=== PATIENT | male | born 1975 | race Caucasian/White ===

== ENCOUNTER 2020-01-21 08:47 | Emergency (ER) | payer OTHER, MEDICAID, SELFPAY ==
[2020-01-21 08:55] VITALS: BP 144/87; PULSE 79; RESP 16; TEMP 36.6; O2SAT 100; BMI 28.7
--- NOTE | 2020-01-21 09:03 | DI.RAD.S_ITS ---
PROCEDURE: XR WRIST LT MIN 3V INDICATIONS: fall TECHNIQUE: For views of the wrist were acquired. COMPARISON: None. FINDINGS: No fracture. No focal osseous destruction. Normal alignment. Mild spurring at the triscaphe joint. Soft tissues grossly unremarkable. IMPRESSION: No fracture. If the patient's symptoms do not improve recommend followup radiographs in 10 days to assess for healing sclerosis/occult injury. Dictated by: Bogdan Samaniego M.D. on 01/21/2020 at 9:29 Approved by: Bogdan Samaniego M.D. on 01/21/2020 at 9:31
--- NOTE | 2020-01-21 09:33 | ED_ITS ---
HPI - Extremity Injury (Upper) General Chief Complaint: Extremity Injury, Upper Stated Complaint: fall/injury to left wrist Time Seen by Provider: 01/21/20 08:56 Source: patient Mode of arrival: Ambulatory Limitations: no limitations History of Present Illness HPI narrative: Patient presents with left wrist pain after fall this morning. He says he was running through rest very bushes when he tripped on a vine and fell. He has some swelling of the left wrist no numbness or tingling. He denies any other injuries MD complaint: injury to: left and wrist Related Data Home Medications Medication Instructions Recorded Confirmed No Known Home Medications 01/21/20 01/21/20 Allergies Allergy/AdvReac Type Severity Reaction Status Date / Time No Known Drug Allergies Allergy Verified 01/21/20 09:02 Review of Systems Review of Systems Narrative: GENERAL: Denies chills,fever HEENT: Denies throat pain RESPIRATORY: Denies dyspnea, cough, wheezing CARDIOVASCULAR: Denies chest pain, palpitations GASTROINTESTINAL: Denies nausea, vomiting MUSCULOSKELETAL: See HPI SKIN: No rash, no laceration, no pruritus NEUROLOGIC: Denies weakness, dizziness, headache, numbness 8 point review of systems is negative except for those stated above and HPI Patient History Social History Smoking Status: Current every day smoker Smoking Status: Current every day smoker alcohol intake frequency: a few times a month Substance Use Type: marijuana Exam Initial Vital Signs Initial Vital Signs: Vital Signs Temperature 97.9 F 01/21/20 08:55 Pulse Rate 79 01/21/20 08:55 Respiratory Rate 16 01/21/20 08:55 Blood Pressure 144/87 H 01/21/20 08:55 Pulse Oximetry 100 01/21/20 08:55 GENERAL: Well-appearing, well-nourished and in no acute distress. CARDIOVASCULAR: peripheral pulses in tact, cap refill <2 sec RESPIRATORY: No respiratory distress, speaks in full sentences without difficulty EXTREMITIES: Normal range of motion, no clubbing or edema. Neurovascularly intact. Swelling of left wrist around the scaphoid. He is tender around scaphoid with resistance on thumb. Active flexion extension of wrist good distal radial pulse, sensation of ulnar radial and median nerve intact NEUROLOGICAL: Cranial nerves II through XII grossly intact. Normal gait and speech. SKIN: Warm, dry, no petechiae, no rashes or lesions. Procedures Orthopedic Splinting/Casting Injury #1: Side: left Upper Extremity Injury Location: wrist Upper Extremity Immobilizer: thumb spica (velcro) Post splinting neuro exam: intact Post splinting vascular exam: intact Placed by: Nursing Course Orders Ordered: ED Orders 01/21/20 09:03 XR wrist LT min 3V Stat Vital Signs Vital signs: Vital Signs - 8 hr 01/21/20 08:55 Temperature 97.9 F Pulse Rate 79 Respiratory Rate 16 Blood Pressure 144/87 H Pulse Oximetry 100 [facility] - Extremity Injury (Upper) Imaging Data Extremity x-ray #1: Radiologist's Impression: PROCEDURE: XR WRIST LT MIN 3V INDICATIONS: fall TECHNIQUE: For views of the wrist were acquired. COMPARISON: None. FINDINGS: No fracture. No focal osseous destruction. Normal alignment. Mild spurring at the triscaphe joint. Soft tissues grossly unremarkable. IMPRESSION: No fracture. If the patient's symptoms do not improve recommend followup radiographs in 10 days to assess for healing sclerosis/occult injury. Dictated by: Bogdan Samaniego M.D. on 01/21/2020 at 9:29 [facility] Narrative Medical decision making narrative: Patient is placed in a splint questionable scaphoid injury recommend repeat imaging. He is placed in a splint as precaution I discussed all findings with the patient and mother, Education has been performed regarding treatment plan, diagnosis, warning signs and symptoms and all concerns have been addressed. Verbally agree with and understood all of the above. Discharge Plan Departure Patient Disposition: Home Clinical Impression: Left wrist sprain Qualifiers: Encounter type: initial encounter Qualified Code(s): S63.502A - Unspecified sprain of left wrist, initial encounter Discharge Date/Time: 01/21/20 09:53 Instructions: DI for Wrist Sprain Activity Restrictions/Additional Instructions: *You have been diagnosed with left wrist sprain *What to do: Wear splint for about 2 weeks, if continuing to have pain you will need to have another x-ray. Ice 20-30 minutes at a time through the splint *Continue to take medications as directed Ibuprofen 800 mg every 8 hours if needed for pain *Follow up with your primary care provider in 2-3 days *Return to ER if you should have increased pain numbness or tingling or any new, worsening or concerning symptoms Prescriptions: No Action No Known Home Medications RF: 0 Referrals: [facility] [Outside]
== END 2020-01-21 09:53 | disposition home or self-care (01) ==
PROVIDERS: Emergency Provider Emergency Medicine
DX: S63.502A Unspecified sprain of left wrist, initial encounter (principal); W19.XXXA Unspecified fall, initial encounter
CPT/HCPCS: 73110; 99282; 99283

== ENCOUNTER 2022-03-03 15:08 | Emergency (ER) | payer OTHER, MEDICAID, SELFPAY ==
[2022-03-03 15:25] VITALS: BP 139/74; PULSE 75; RESP 18; TEMP 36.8; O2SAT 99; BMI 28.2
[2022-03-03] MEDS: TET,DIPH,PERTUSS(ACELL),VAC/PF 0.5 ML SYRINGE IM (15:30)
--- NOTE | 2022-03-03 16:33 | DI.US.S_ITS ---
PROCEDURE: US PERIPH VENOUS LOW EXTREM LT INDICATIONS: SWELLING/IMMOBILITY TECHNIQUE: Real-time imaging, as well as color and pulse Doppler interrogation, were performed of the lower extremity deep veins from the inguinal ligament to the popliteal fossa. COMPARISON: None. FINDINGS: The common femoral, femoral and popliteal veins are normally compressible, and free of intraluminal thrombus. Color and pulse Doppler demonstrate normal phasic intraluminal flow. There is normal augmentation response to distal compression maneuver. There are multiple enlarged right inguinal lymph node measuring up to 4.4 x 2.3 x 1.4 cm. There is subcutaneous soft tissue edema and increased vascularity. IMPRESSION: 1. No DVT in the right lower extremity. 2. Right inguinal lymphadenopathy. This finding is nonspecific and may be secondary to infectious, inflammatory or neoplastic etiology. Recommend clinical and imaging follow up. 3. Subcutaneous soft tissue edema and increased vascularity, which may be secondary to infection. Recommend clinical correlation. Dictated by: Gabrielle Engel M.D. on 03/03/2022 at 17:41 Approved by: Gabrielle Engel M.D. on 03/03/2022 at 17:44
--- NOTE | 2022-03-03 16:44 | ED_ITS ---
HPI - Wound/Laceration <Rama Villa PA-C - Last Filed: 03/03/22 18:11> General Chief Complaint: Wound/Laceration Stated Complaint: Right leg swelling Time Seen by Provider: 03/03/22 15:57 Source: patient Mode of arrival: Ambulatory History of Present Illness HPI narrative: The patient is 47 years old male without significant medical history, presented to ED due to swollen tender right lower extremity. Prior to that, about 1 week ago he mentioned he might have ?bumped? his right lower extremity which resulted in opened wound. He did not clean his wound immediately, and he later tried to apply antibiotic ointment. Gradually noticed a redness around the wound, which expanded to substantial area and now covering his anterior thacker. He also noticed swelling in the right lower extremity and pain. He admits he was not very mobile due to pain in that leg. Currently he denies fever chills, admits to pain especially when he bears weight on the right lower extremity. The wound seemed to be slightly leaking yellow discharge. Patient recalled he was not up-to-date with the tetanus vaccine Related Data Previous Rx's Medication Instructions Recorded amoxicillin 875 mg-potassium 1 tab PO BID cellulitis #20 tabs 03/03/22 clavulanate 125 mg tablet mupirocin calcium 2 % topical cream 1 applic topical TID #30 grams 03/03/22 Allergies Allergy/AdvReac Type Severity Reaction Status Date / Time No Known Drug Allergies Allergy Verified 03/03/22 17:49 Review of Systems <Rama Villa PA-C - Last Filed: 03/03/22 18:11> Review of Systems Narrative: GENERAL: Denies chills, fatigue, malaise, fever, sweats. HEENT: Denies sinus pain, ear pain, sore throat, difficulty swallowing, dizziness. RESPIRATORY: Denies dyspnea, cough, wheezing, hemoptysis, sputum. CARDIOVASCULAR: Denies chest pain, palpitations, orthopnea, edema, GASTROINTESTINAL: Denies nausea, vomiting, abdominal pain, diarrhea, constipation, melena. : Denies dysuria, frequency, incontinence, hematuria, urinary retention. MUSCULOSKELETAL: denies weakness, joint pain, or bony pain SKIN: Denies rash, skin lesions, apart from his right lower extremity wound NEUROLOGIC: Denies weakness, headache, numbness, change in speech, confusion, seizures, incoordination. PSYCHIATRIC: No concerning psychosocial issues. Patient History <Rama Villa PA-C - Last Filed: 03/03/22 18:11> Social History Smoking Status: Current every day smoker Smoking Status: Current every day smoker alcohol intake frequency: a few times a month Substance Use Type: marijuana Exam <Rama Villa PA-C - Last Filed: 03/03/22 18:11> Narrative Exam Narrative: GENERAL: 47 year old patient appears older stated age. Well-developed patient, in no distress. HEAD: Atraumatic. Normocephalic. EYES: Pupils equal round and reactive. Extraocular motions intact. No scleral icterus. No injection or drainage. ENT: Nose without bleeding, purulent drainage. Throat without erythema, tonsillar hypertrophy or exudate. Airway patent. NECK: Trachea midline. Non tender CARDIOVASCULAR: Regular rate and rhythm without murmurs, gallops, or rubs. RESPIRATORY: Clear to auscultation. Breath sounds equal bilaterally. No wheezes, rales, or rhonchi. GASTROINTESTINAL: Abdomen soft, obese non-tender, nondistended no organomegaly EXTREMITIES: No edema or joint tenderness. BACK: Nontender without deformity or crepitance. No flank tenderness. NEURO: AOx3. Normal LE reflexes cranial IV-XII intact SKIN: RLE diffuse erythema about 10-X 12 cm anterior thacker with opened ulcerated wound 2 X 2.4 cm with some exudate and non pitting edema + 2 Initial Vital Signs Initial Vital Signs: Vital Signs Temperature 98.3 F 03/03/22 15:25 Pulse Rate 75 03/03/22 15:25 Respiratory Rate 18 03/03/22 15:25 Blood Pressure 139/74 03/03/22 15:25 Pulse Oximetry 99 03/03/22 15:25 Oxygen Delivery Method 03/03/22 15:25 <Sg Bianchi MD - Last Filed: 03/03/22 18:28> Initial Vital Signs Initial Vital Signs: Vital Signs Temperature 98.3 F 03/03/22 15:25 Pulse Rate 75 03/03/22 15:25 Respiratory Rate 18 03/03/22 15:25 Blood Pressure 139/74 03/03/22 15:25 Pulse Oximetry 99 03/03/22 15:25 Oxygen Delivery Method 03/03/22 15:25 Course <Rama Villa PA-C - Last Filed: 03/03/22 18:11> Orders Ordered: ED Orders 03/03/22 16:28 CBC Auto Diff [Complete Blood Count AUTO DIFF] Stat CMP [Comprehensive Metabolic Panel] Stat CRP [C-Reactive Protein Quant] Stat Lactate (Lactic Acid) Stat Procalcitonin Stat 03/03/22 16:33 US periph venous low extrem lt Stat 03/03/22 16:40 Wound Culture and Gram Stain Stat Discontinued Medications Bacitracin (Bacitracin Oint 0.9 Gm Pckt) 2 applic TOP NOW ONE Stop: 03/03/22 17:39 Last Admin: 03/03/22 18:22 Dose: 2 applic Documented By: NR Diphtheria/Tetanus/Acell Pertussis (Tet,Diph,Pertuss(Acell),Vac/Pf 0.5 Ml Syringe) 0.5 ml IM .ONCE ONE Stop: 03/03/22 15:29 Last Admin: 03/03/22 15:30 Dose: 0.5 ml Documented By: RA Ketorolac Tromethamine (Ketorolac 30 Mg/Ml Vial) 30 mg IM NOW ONE Stop: 03/03/22 16:44 Last Admin: 03/03/22 17:15 Dose: 30 mg Documented By: NR Vital Signs Vital signs: Vital Signs - 8 hr 03/03/22 15:25 Temperature 98.3 F Pulse Rate 75 Respiratory Rate 18 Blood Pressure 139/74 Pulse Oximetry 99 Oxygen Delivery Method Room Air <Sg Bianchi MD - Last Filed: 03/03/22 18:28> Orders Ordered: ED Orders 03/03/22 16:28 CBC Auto Diff [Complete Blood Count AUTO DIFF] Stat CMP [Comprehensive Metabolic Panel] Stat CRP [C-Reactive Protein Quant] Stat Lactate (Lactic Acid) Stat Procalcitonin Stat 03/03/22 16:33 US periph venous low extrem lt Stat 03/03/22 16:40 Wound Culture and Gram Stain Stat Discontinued Medications Bacitracin (Bacitracin Oint 0.9 Gm Pckt) 2 applic TOP NOW ONE Stop: 03/03/22 17:39 Last Admin: 03/03/22 18:22 Dose: 2 applic Documented By: NR Diphtheria/Tetanus/Acell Pertussis (Tet,Diph,Pertuss(Acell),Vac/Pf 0.5 Ml Syringe) 0.5 ml IM .ONCE ONE Stop: 03/03/22 15:29 Last Admin: 03/03/22 15:30 Dose: 0.5 ml Documented By: RA Ketorolac Tromethamine (Ketorolac 30 Mg/Ml Vial) 30 mg IM NOW ONE Stop: 03/03/22 16:44 Last Admin: 03/03/22 17:15 Dose: 30 mg Documented By: NR Vital Signs Vital signs: Vital Signs - 8 hr 03/03/22 15:25 Temperature 98.3 F Pulse Rate 75 Respiratory Rate 18 Blood Pressure 139/74 Pulse Oximetry 99 Oxygen Delivery Method Room Air MDM - Wound/Laceration <Rama Villa PA-C - Last Filed: 03/03/22 18:11> Lab Data Result diagrams: 03/03/22 16:28 03/03/22 16:28 Labs: Lab Results 03/03/22 03/03/22 03/03/22 Range/Units 16:28 16:28 16:28 WBC 6.2 (4.5-11.0) X10^3/uL RBC 4.45 L (4.5-5.9) X10^6/uL Hgb 12.0 L (13.5-17.5) g/dL Hct 36.1 L (41-53) % MCV 81.1 (80-100) fL MCH 26.9 (26-34) PG MCHC 33.2 (30-36) % RDW 15.1 H (11.6-14.8) % Plt Count 266 (150-400) X10^3/uL Neut % (Auto) 60.0 (50-75) % Lymph % (Auto) 22.8 L (25-40) % Finney % (Auto) 12.6 (3-14) % Eos % (Auto) 3.8 (2-4) % Baso % (Auto) 0.8 (0-2) % Neut # (Auto) 3700 (8744-2849) /uL Lymph # (Auto) 1400 (0435-1661) /uL Finney # (Auto) 800 (0-900) /uL Eos # (Auto) 200 (0-450) /uL Baso # (Auto) 0 (0-100) /uL Sodium 138 (137-145) mmol/L Potassium 4.1 (3.4-5.1) mmol/L Chloride 99 (98-107) mmol/L Carbon Dioxide 32 (22-32) mmol/L BUN 9 (9-20) mg/dL Creatinine 0.72 (0.66-1.25) mg/dL Estimated GFR > 60 (>60) mL/min BUN/Creatinine Ratio 12.5 (6-22) Glucose 106 H (70-100) mg/dL Lactate 1.2 (0.7-2.1) mmol/L Calcium 8.5 (8.4-10.2) mg/dL Total Bilirubin 0.5 (0.2-1.3) mg/dL AST 24 (17-59) IU/L ALT 12 (<50) IU/L Alkaline Phosphatase 69 (38-126) U/L C-Reactive Protein (<1.0) mg/dL Total Protein 7.4 (6.3-8.2) g/dL Albumin 3.8 (3.5-5.0) g/dL Globulin 3.6 (1.7-4.1) g/dL Albumin/Globulin Ratio 1.1 (1.0-2.8) Procalcitonin (<0.5) ng/mL 03/03/22 Range/Units 16:28 WBC (4.5-11.0) X10^3/uL RBC (4.5-5.9) X10^6/uL Hgb (13.5-17.5) g/dL Hct (41-53) % MCV (80-100) fL MCH (26-34) PG MCHC (30-36) % RDW (11.6-14.8) % Plt Count (150-400) X10^3/uL Neut % (Auto) (50-75) % Lymph % (Auto) (25-40) % Finney % (Auto) (3-14) % Eos % (Auto) (2-4) % Baso % (Auto) (0-2) % Neut # (Auto) (5763-7619) /uL Lymph # (Auto) (0549-3617) /uL Finney # (Auto) (0-900) /uL Eos # (Auto) (0-450) /uL Baso # (Auto) (0-100) /uL Sodium (137-145) mmol/L Potassium (3.4-5.1) mmol/L Chloride (98-107) mmol/L Carbon Dioxide (22-32) mmol/L BUN (9-20) mg/dL Creatinine (0.66-1.25) mg/dL Estimated GFR (>60) mL/min BUN/Creatinine Ratio (6-22) Glucose (70-100) mg/dL Lactate (0.7-2.1) mmol/L Calcium (8.4-10.2) mg/dL Total Bilirubin (0.2-1.3) mg/dL AST (17-59) IU/L ALT (<50) IU/L Alkaline Phosphatase (38-126) U/L C-Reactive Protein 7.9 H (<1.0) mg/dL Total Protein (6.3-8.2) g/dL Albumin (3.5-5.0) g/dL Globulin (1.7-4.1) g/dL Albumin/Globulin Ratio (1.0-2.8) Procalcitonin 0.10 (<0.5) ng/mL Imaging Data doppler: Radiologist's Impression: IMPRESSION:? ? 1. No DVT in the right lower extremity. 2. Right inguinal lymphadenopathy.? This finding is nonspecific and may be secondary to infectious, inflammatory or neoplastic etiology.? Recommend clinical and imaging follow up. 3. Subcutaneous soft tissue edema and increased vascularity, which may be secondary to infection.? Recommend clinical correlation.? ? [facility] Narrative Medical decision making narrative: Patient was seen in ED with infected wound of right lower extremity, diagnosed as a cellulitis. Based on exam, labs imaging patient does not display sepsis He received analgesics, and wound cultures were obtained ruling out MRSA Patient will receive oral antibiotics and follow in walk in clinic or his PCP in several days Patient's symptoms improved over duration of stay with above-stated therapies. Findings and discharge diagnosis discussed with patient followed by verbalization of understanding Return precautions discussed with patient - fever chills worsening edema and redness , discharge from his wound . <Sg Bianchi MD - Last Filed: 03/03/22 18:28> Lab Data Labs: Lab Results 03/03/22 03/03/22 03/03/22 Range/Units 16:28 16:28 16:28 WBC 6.2 (4.5-11.0) X10^3/uL RBC 4.45 L (4.5-5.9) X10^6/uL Hgb 12.0 L (13.5-17.5) g/dL Hct 36.1 L (41-53) % MCV 81.1 (80-100) fL MCH 26.9 (26-34) PG MCHC 33.2 (30-36) % RDW 15.1 H (11.6-14.8) % Plt Count 266 (150-400) X10^3/uL Neut % (Auto) 60.0 (50-75) % Lymph % (Auto) 22.8 L (25-40) % Finney % (Auto) 12.6 (3-14) % Eos % (Auto) 3.8 (2-4) % Baso % (Auto) 0.8 (0-2) % Neut # (Auto) 3700 (0112-2223) /uL Lymph # (Auto) 1400 (3610-2414) /uL Finney # (Auto) 800 (0-900) /uL Eos # (Auto) 200 (0-450) /uL Baso # (Auto) 0 (0-100) /uL Sodium 138 (137-145) mmol/L Potassium 4.1 (3.4-5.1) mmol/L Chloride 99 (98-107) mmol/L Carbon Dioxide 32 (22-32) mmol/L BUN 9 (9-20) mg/dL Creatinine 0.72 (0.66-1.25) mg/dL Estimated GFR > 60 (>60) mL/min BUN/Creatinine Ratio 12.5 (6-22) Glucose 106 H (70-100) mg/dL Lactate 1.2 (0.7-2.1) mmol/L Calcium 8.5 (8.4-10.2) mg/dL Total Bilirubin 0.5 (0.2-1.3) mg/dL AST 24 (17-59) IU/L ALT 12 (<50) IU/L Alkaline Phosphatase 69 (38-126) U/L C-Reactive Protein (<1.0) mg/dL Total Protein 7.4 (6.3-8.2) g/dL Albumin 3.8 (3.5-5.0) g/dL Globulin 3.6 (1.7-4.1) g/dL Albumin/Globulin Ratio 1.1 (1.0-2.8) Procalcitonin (<0.5) ng/mL 03/03/22 Range/Units 16:28 WBC (4.5-11.0) X10^3/uL RBC (4.5-5.9) X10^6/uL Hgb (13.5-17.5) g/dL Hct (41-53) % MCV (80-100) fL MCH (26-34) PG MCHC (30-36) % RDW (11.6-14.8) % Plt Count (150-400) X10^3/uL Neut % (Auto) (50-75) % Lymph % (Auto) (25-40) % Finney % (Auto) (3-14) % Eos % (Auto) (2-4) % Baso % (Auto) (0-2) % Neut # (Auto) (0902-9709) /uL Lymph # (Auto) (4407-1117) /uL Finney # (Auto) (0-900) /uL Eos # (Auto) (0-450) /uL Baso # (Auto) (0-100) /uL Sodium (137-145) mmol/L Potassium (3.4-5.1) mmol/L Chloride (98-107) mmol/L Carbon Dioxide (22-32) mmol/L BUN (9-20) mg/dL Creatinine (0.66-1.25) mg/dL Estimated GFR (>60) mL/min BUN/Creatinine Ratio (6-22) Glucose (70-100) mg/dL Lactate (0.7-2.1) mmol/L Calcium (8.4-10.2) mg/dL Total Bilirubin (0.2-1.3) mg/dL AST (17-59) IU/L ALT (<50) IU/L Alkaline Phosphatase (38-126) U/L C-Reactive Protein 7.9 H (<1.0) mg/dL Total Protein (6.3-8.2) g/dL Albumin (3.5-5.0) g/dL Globulin (1.7-4.1) g/dL Albumin/Globulin Ratio (1.0-2.8) Procalcitonin 0.10 (<0.5) ng/mL Discharge Plan Departure Patient Disposition: Home Clinical Impression: Abscess Instructions: DI for Wound Infection, Skin Wound Activity Restrictions/Additional Instructions: *You have been diagnosed with Right lower extemity cellulitis *What to do: New medication prescriptions sent to your pharmacy: mupirocin cream and augmentin 875/125 mg twice a day *Please follow up with your primary care provider in 2-3 days, or call for an appointment to establish provider. *If you do not have a primary care provider please contact the [facility] Resource line at [phone]. They will ask some questions about your medical history and help get you set up with a doctor in the community. Let them know you were seen in the Emergency Department and that we ask that you be seen in follow up. We will electronically transmit a record of today's note *Return to Emergency Department if you should have any new, worsening or concerning symptoms, such as fever greater than 101 F, shaking chills, worsening pain, redness and drainage in extremity, vomiting diarrhea or other bothersome symptoms Prescriptions: New amoxicillin-pot clavulanate 875-125 mg tablet 1 tab PO BID Qty: 20 0RF mupirocin calcium 2 % cream 1 applic topical TID Qty: 30 1RF Visit Report Forms: Patient Portal/API <Sg Bianchi MD - Last Filed: 03/03/22 18:28> Cosign ED Attending Cosignature Attestation: I was immediately available in the department for consultation. ?This documentation has been reviewed and I agree with assessment and plan. Supervised by Sg Bianchi MD
[2022-03-03 16:52] LABS: Add Manual Diff / Slide Review NO; Basophils Absolute Auto 0 /uL (0-100); Basophils Percent Auto 0.8 % (0-2); Eosinophils Absolute Auto 200 /uL (0-450); Eosinophils Percent Auto 3.8 % (2-4); Hematocrit 36.1 % (41-53); Lymphocytes Absolute Auto 1400 /uL (1100-4500); Lymphocytes Percent Auto 22.8 % (25-40); Mean Corpuscular HGB Conc 33.2 % (30-36); Mean Corpuscular Hemoglobin 26.9 PG (26-34); Mean Corpuscular Volume 81.1 fL (80-100); Monocytes Absolute Auto 800 /uL (0-900); Monocytes Percent Auto 12.6 % (3-14); Neutrophils Absolute Auto 3700 /uL (1500-7000); Platelet Count 266 X10^3/uL (150-400); Red Blood Cell Count 4.45 X10^6/uL (4.5-5.9); Red Cell Distribution Width 15.1 % (11.6-14.8); White Blood Cell Count 6.2 X10^3/uL (4.5-11.0)
[2022-03-03 17:04] LABS: Lactate (Lactic Acid) 1.2 mmol/L (0.7-2.1)
[2022-03-03 17:06] LABS: Alanine Aminotransferase 12 IU/L (<50); Albumin 3.8 g/dL (3.5-5.0); Albumin Globulin Ratio 1.1 (1.0-2.8); Alkaline Phosphatase 69 U/L (38-126); Aspartate Aminotransferase 24 IU/L (17-59); BUN Creatinine Ratio 12.5 (6-22); Bilirubin Total 0.5 mg/dL (0.2-1.3); Blood Urea Nitrogen 9 mg/dL (9-20); Calcium 8.5 mg/dL (8.4-10.2); Carbon Dioxide 32 mmol/L (22-32); Chloride 99 mmol/L (98-107); Estimated Glomerular Filt Rate > 60 mL/min (>60); Globulin 3.6 g/dL (1.7-4.1); Glucose 106 mg/dL (70-100); HEMOLYSIS < 15 (0-50); Potassium 4.1 mmol/L (3.4-5.1); Sodium 138 mmol/L (137-145); Total Protein 7.4 g/dL (6.3-8.2)
[2022-03-03 17:09] LABS: C-Reactive Protein Quant 7.9 mg/dL (<1.0)
[2022-03-03] MEDS: KETOROLAC 30 MG/ML VIAL IM (17:15)
[2022-03-03] MEDS: BACITRACIN OINT 0.9 GM PCKT 2 APPLIC TOP (18:22)
== END 2022-03-03 18:28 | disposition home or self-care (01) ==
PROVIDERS: Emergency Provider Physician Assistant Medical
DX: L03.115 Cellulitis of right lower limb (principal); Z23 Encounter for immunization
CPT/HCPCS: 36415; 80053; 83605; 84145; 85025; 86140; 90471; 93971; 96372; 99284; 90715; J1885

== ENCOUNTER 2023-09-02 19:09 | Observation (INO) | payer OTHER, MEDICAID, SELFPAY ==
[2023-09-02] VITALS (10 sets, daily range): BP systolic 140–162; BP diastolic 82–99; PULSE 92–110; RESP 16–18; TEMP 36.8; O2SAT 97–100; BMI 26.9; BMI 28.2
--- NOTE | 2023-09-02 19:37 | ED.LOWEXIN ---
HPI - Extremity Injury (Lower) General Chief Complaint: Extremity Injury, Lower Stated Complaint: rt leg swelling Time Seen by Provider: 09/02/23 19:13 Source: patient Mode of arrival: Ambulatory History of Present Illness HPI Narrative: 48-year-old male with no reported past medical history presents for 4-7 days of right lower extremity pain and swelling. Patient states that he thinks he may have bumped his leg against something, causing a scratch, which spread to his leg. It has become progressively more painful and swollen. Does not know when his last tetanus shot was.Denies fevers, chills, numbnes. Related Data Home Medications Medication Instructions Recorded Confirmed No Known Home Medications 09/03/23 09/03/23 Allergies Allergy/AdvReac Type Severity Reaction Status Date / Time No Known Drug Allergies Allergy Verified 03/03/22 17:49 Review of Systems Review of Systems Narrative: Negative except as noted above Patient History Social History household members: none Smoking Status: Current some day smoker Smoking Status: Current some day smoker alcohol intake frequency: a few times a month Substance Use Type: marijuana Exam Initial Vital Signs Initial Vital Signs: Vital Signs Temperature 98.3 F 09/02/23 19:12 Pulse Rate 110 H 09/02/23 19:12 Respiratory Rate 18 09/02/23 19:12 Blood Pressure 162/96 H 09/02/23 19:12 Pulse Oximetry 99 09/02/23 19:12 Oxygen Delivery Method Room Air 09/02/23 19:12 Const: Awake, alert, disheveled, appears older than stated age Cardiac: Tachycardia, regular rhythm RESP: unlabored, clear bilaterally, no wheezing GI: Atraumatic, soft, nontender MSK: Right lower extremity greater than left lower extremity, compartments soft Skin: Extensive cellulitis from right knee down to right ankle, multiple excoriations on the right leg Neuro: AO x3, CN II-XII grossly intact, moves all extremities Course Orders Ordered: Acetaminophen (Acetaminophen 325 Mg Tablet) 650 mg PO Q6H PRN PRN Reason: Fever/Mild Pain (1-3) Hydrocodone Bitart/Acetaminophen (Hydrocodone/Acet 5/325 Tablet) 1 tab PO Q4H PRN PRN Reason: Pain, Moderate (4-6) Hydrocodone Bitart/Acetaminophen (Hydrocodone/Acet 5/325 Tablet) 2 tab PO Q4H PRN PRN Reason: Pain, Severe (7-10) Last Admin: 09/03/23 05:47 Dose: 2 tab Documented By: Admin: 09/03/23 00:15 Dose: 2 tab Documented By: MARLINE Albuterol (Albuterol 2.5 Mg/3 Ml Neb (Adult)) 2.5 mg INH [id number] PRN PRN Reason: Shortness Of Breath Enoxaparin Sodium (Enoxaparin 40 Mg/0.4 Ml Syringe) 40 mg SUBCUT DAILY [facility] Last Admin: 09/03/23 08:35 Dose: 40 mg Documented By: JUAN Ceftriaxone Sodium 1,000 mg/ (Sodium Chloride) 100 mls @ 200 mls/hr IV Q24H [facility] Last Infusion: 09/03/23 20:31 Dose: Infused Documented By: Admin: 09/03/23 20:01 Dose: 200 mls/hr Documented By: SNOW Vancomycin HCl/Dextrose (Vancomycin) 1,500 mg in 300 mls @ 150 mls/hr IV Q8H [facility] Last Admin: 09/04/23 00:07 Dose: 150 mls/hr Documented By: SNOW Ibuprofen (Ibuprofen 600 Mg Tablet) 600 mg PO Q6H PRN PRN Reason: Fever/Mild Pain (1-3) Last Admin: 09/03/23 08:37 Dose: 600 mg Documented By: JUAN Naloxone HCl (Naloxone 0.4 Mg/Ml Vial) 0.2 mg IV Q2MIN PRN PRN Reason: Opiate Reversal Ondansetron HCl (Ondansetron 4 Mg Odt) 4 mg PO Q4HR PRN PRN Reason: nausea Discontinued Medications Vancomycin HCl/Dextrose (Vancomycin) 2,000 mg in 400 mls @ 200 mls/hr IV NOW ONE Stop: 09/02/23 21:36 Last Infusion: 09/02/23 22:03 Dose: Infused Documented By: Admin: 09/02/23 19:59 Dose: 200 mls/hr Documented By: SB Ceftriaxone Sodium 2,000 mg/ (Sodium Chloride) 100 mls @ 200 mls/hr IV NOW ONE Stop: 09/02/23 19:37 Last Infusion: 09/02/23 20:35 Dose: Infused Documented By: Admin: 09/02/23 19:58 Dose: 200 mls/hr Documented By: MARIA G Sodium Chloride (Normal Saline 0.9%) 1,000 mls @ 1,000 mls/hr IV BOLUS ONE Stop: 09/02/23 23:07 Last Infusion: 09/02/23 23:14 Dose: Infused Documented By: Admin: 09/02/23 22:11 Dose: 1,000 mls/hr Documented By: KARLO Vancomycin HCl (Vancomycin) 1,250 mg in 250 mls @ 166.667 mls/hr IV Q8H [facility] Last Admin: 09/03/23 05:34 Dose: 166.667 mls/hr Documented By: MARLINE Vancomycin HCl 1,250 mg/ (Sodium Chloride) 250 mls @ 166.667 mls/hr IV Q8H [facility] Last Admin: 09/03/23 22:00 Dose: Not Given Documented By: Admin: 09/03/23 14:07 Dose: 166.667 mls/hr Documented By: [facility] Vancomycin HCl (Vancomycin Trough) 1 [place] [facility] [place] Stop: 09/03/23 21:31 Last Admin: 09/03/23 22:59 Dose: 1 request Documented By: SNOW Vital Signs Vital signs: Vital Signs - 8 hr 09/02/23 19:12 09/02/23 19:59 09/02/23 20:00 Temperature 98.3 F Pulse Rate 110 H 108 H Respiratory Rate 18 Blood Pressure 162/96 H 143/86 H Pulse Oximetry 99 98 Oxygen Delivery Method Room Air Room Air 09/02/23 20:00 09/02/23 20:30 09/02/23 20:30 Temperature Pulse Rate 108 H 97 H Respiratory Rate Blood Pressure 140/82 Pulse Oximetry 98 97 Oxygen Delivery Method Room Air Room Air 09/02/23 21:00 09/02/23 21:00 09/02/23 21:30 Temperature Pulse Rate 97 H Respiratory Rate Blood Pressure 145/88 H 140/83 Pulse Oximetry 99 Oxygen Delivery Method Room Air 09/02/23 21:30 09/02/23 22:00 09/02/23 22:00 Temperature Pulse Rate 104 H 92 H Respiratory Rate Blood Pressure 146/88 H Pulse Oximetry 100 99 Oxygen Delivery Method 09/02/23 22:30 09/02/23 22:30 Temperature Pulse Rate 94 H Respiratory Rate Blood Pressure 154/96 H Pulse Oximetry 100 Oxygen Delivery Method MDM - Extremity Injury (Lower) Differential Diagnosis Differential diagnosis: Likely ankle sprain and strain, acute internal derangement of knee and fracture of femur Lab Data 09/03/23 04:57 09/03/23 04:57 Labs: Lab Results 09/02/23 Range/Units 19:35 WBC 8.9 (4.5-11.0) X10^3/uL RBC 4.32 L (4.5-5.9) X10^6/uL Hgb 11.4 L (13.5-17.5) g/dL Hct 34.2 L (41-53) % MCV 79.3 L (80-100) fL MCH 26.4 (26-34) PG MCHC 33.4 (30-36) % RDW 14.9 H (11.6-14.8) % Plt Count 358 (150-400) X10^3/uL Neut % (Auto) 72.6 (50-75) % Lymph % (Auto) 16.5 L (25-40) % [place] % (Auto) 8.1 (3-14) % Eos % (Auto) 1.8 L (2-4) % Baso % (Auto) 1.0 (0-2) % Neut # (Auto) 6500 (8021-9238) /uL Lymph # (Auto) 1500 (1259-0861) /uL [place] # (Auto) 700 (0-900) /uL Eos # (Auto) 200 (0-450) /uL Baso # (Auto) 100 (0-100) /uL PT 12.2 (9.4-12.5) SECONDS INR 1.1 (0.9-1.3) Sodium 141 (137-145) mmol/L Potassium 3.2 L (3.4-5.1) mmol/L Chloride 104 (98-107) mmol/L Carbon Dioxide 33 H (22-32) mmol/L BUN 9 (9-20) mg/dL Creatinine 0.65 L (0.66-1.25) mg/dL Estimated GFR > 60 (>60) mL/min BUN/Creatinine Ratio 13.8 (6-22) Glucose 117 H (70-100) mg/dL Lactate 0.8 (0.7-2.1) mmol/L Calcium 9.1 (8.4-10.2) mg/dL Magnesium 2.0 (1.6-2.3) mg/dL Total Bilirubin 0.8 (0.2-1.3) mg/dL AST 25 (17-59) IU/L ALT 14 (<50) IU/L Alkaline Phosphatase 74 (38-126) U/L Total Protein 8.1 (6.3-8.2) g/dL Albumin 4.2 (3.5-5.0) g/dL Globulin 3.9 (1.7-4.1) g/dL Albumin/Globulin Ratio 1.1 (1.0-2.8) Procalcitonin 0.07 (<0.5) ng/mL Ethyl Alcohol < 10 ( - 10) mg/dL Imaging Data US - DVT: My Impression: PROCEDURE: US PERIPH VENOUS LOW EXTREM RT INDICATIONS: RLE SWELLING X4 DAYS TECHNIQUE: Real-time imaging, as well as color and pulse Doppler interrogation, were performed of the lower extremity deep veins from the inguinal ligament to the popliteal fossa, with documentation of the visualized calf veins. COMPARISON: None. FINDINGS: The common femoral, femoral, popliteal, and the visualized calf veins are normally compressible, and free of intraluminal thrombus. Color and pulse Doppler demonstrate normal phasic intraluminal flow. There is normal augmentation response to distal compression maneuver. IMPRESSION: No findings of lower extremity deep venous thrombosis. Dictated by: Harvey Barker M.D. on 09/02/2023 at 20:34 Approved by: Harvey Barker M.D. on 09/02/2023 at 20:35 [facility] Narrative Medical decision making narrative: 4- 7 days of increasing pain and swelling in his right lower extremity. Patient isn't exactly sure of when the initial injury to his leg occurred but it was obviously very erythematous and swollen with obvious cellulitis. Due to the extent of the cellulitis as well as tachycardia sepsis bundle ordered with vancomycin and Rocephin ordered for coverage. Laboratory work shows WBC count 8.9, hemoglobin 11.4, potassium 3.2, creatinine 0.65, lactate 0.8. Ultrasound negative for DVT. Patient has received IV antibiotics and is resting comfortably in bed with improved vital signs. Urine tox is positive for methamphetamines, I do suspect that this is contributing to patient's cellulitis as there are numerous excoriations on the right lower extremity that appear to be congruent with skin picking. Based on the size of the cellulitis it would be advisable for patient to stay for extra IV antibiotics. Patient in agreement with admission at this time. Discharge Plan Departure Patient Disposition: Admitted As Inpatient Clinical Impression: Cellulitis of right lower extremity, Methamphetamine use, Tobacco use Admit Date/Time: 09/02/23 22:33 Admit Provider: Viktor Edward
[2023-09-02 19:47] LABS: Add Manual Diff / Slide Review NO; Basophils Absolute Auto 100 /uL (0-100); Eosinophils Absolute Auto 200 /uL (0-450); Eosinophils Percent Auto 1.8 % (2-4); Hematocrit 34.2 % (41-53); Hemoglobin 11.4 g/dL (13.5-17.5); Lymphocytes Absolute Auto 1500 /uL (1100-4500); Lymphocytes Percent Auto 16.5 % (25-40); Mean Corpuscular HGB Conc 33.4 % (30-36); Mean Corpuscular Hemoglobin 26.4 PG (26-34); Mean Corpuscular Volume 79.3 fL (80-100); Monocytes Absolute Auto 700 /uL (0-900); Monocytes Percent Auto 8.1 % (3-14); Neutrophils Absolute Auto 6500 /uL (1500-7000); Neutrophils Percent Auto 72.6 % (50-75); Platelet Count 358 X10^3/uL (150-400); Red Blood Cell Count 4.32 X10^6/uL (4.5-5.9); Red Cell Distribution Width 14.9 % (11.6-14.8); White Blood Cell Count 8.9 X10^3/uL (4.5-11.0)
[2023-09-02 19:55] LABS: INR 1.1 (0.9-1.3); Prothrombin Time 12.2 SECONDS (9.4-12.5)
[2023-09-02] MEDS: cefTRIAXone 2,000 MG in SODIUM CHLORIDE 0.9% 100 ML 200 MG IV (19:58)
[2023-09-02 19:59] LABS: Alanine Aminotransferase 14 IU/L (<50); Albumin 4.2 g/dL (3.5-5.0); Albumin Globulin Ratio 1.1 (1.0-2.8); Alkaline Phosphatase 74 U/L (38-126); Aspartate Aminotransferase 25 IU/L (17-59); BUN Creatinine Ratio 13.8 (6-22); Bilirubin Total 0.8 mg/dL (0.2-1.3); Blood Urea Nitrogen 9 mg/dL (9-20); Calcium 9.1 mg/dL (8.4-10.2); Carbon Dioxide 33 mmol/L (22-32); Chloride 104 mmol/L (98-107); Estimated Glomerular Filt Rate > 60 mL/min (>60); Ethanol (ETOH) < 10 mg/dL; Globulin 3.9 g/dL (1.7-4.1); Glucose 117 mg/dL (70-100); HEMOLYSIS < 15 (0-50); Lactate (Lactic Acid) 0.8 mmol/L (0.7-2.1); Potassium 3.2 mmol/L (3.4-5.1); Sodium 141 mmol/L (137-145); Total Protein 8.1 g/dL (6.3-8.2)
[2023-09-02] MEDS: VANCOMYCIN 2,000 MG/400 ML PIGGYBACK 200 MG IV (19:59)
[2023-09-02 20:16] LABS: Procalcitonin 0.07 ng/mL (<0.5)
[2023-09-02] MEDS: SODIUM CHLORIDE 0.9% 1,000 ML 1000 ML IV (22:11)
--- NOTE | 2023-09-02 23:03 | PM.HP.1 ---
History of Present Illness History of Present Illness Date Patient Seen: 09/02/23 Time Patient Seen: 23:30 Date of Onset of Symptoms: 08/27/23 Chief complaint: Right lower leg swelling and pain Narrative: 48 y/o without PMH, presented to ED with progressive swelling, tenderness and pain of right lower leg, started several days ago. Very similar visit 2 years ago, with RLE cellulitis and one draining wound over the thacker but with smaller affected area allowing for PO abx. ED workup unremarkable. Vitals stable, not septic, placed in observation for 1-2 days of IV abx due to the size of infected area. He does not report fever, chills or sweats. [facility] Social History Smoking Status: Current some day smoker Meds Home Medications and Allergies Home Medications Medication Instructions Recorded Confirmed Type amoxicillin 875 mg-potassium 1 tab PO BID cellulitis #20 tabs 03/03/22 Rx clavulanate 125 mg tablet mupirocin calcium 2 % topical cream 1 applic topical TID #30 grams 03/03/22 Rx Allergies Allergy/AdvReac Type Severity Reaction Status Date / Time No Known Drug Allergies Allergy Verified 03/03/22 17:49 Review of Systems Constitutional Comments: w/o fever, chills or sweats Cardiovascular Comments: w/o chest pain Respiratory Comments: w/o shortness of breath Musculoskeletal Comments: RLE swelling, pain. He bumped into something few days ago. Exam Vital Signs (past 8 hours): - 09/02/23 19:12 09/02/23 19:59 09/02/23 20:00 Temperature 98.3 F Pulse Rate 110 H 108 H Respiratory Rate 18 Blood Pressure 162/96 H 143/86 H Pulse Oximetry 99 98 Oxygen Delivery Method Room Air Room Air 09/02/23 20:00 09/02/23 20:30 09/02/23 20:30 Temperature Pulse Rate 108 H 97 H Respiratory Rate Blood Pressure 140/82 Pulse Oximetry 98 97 Oxygen Delivery Method Room Air Room Air 09/02/23 21:00 09/02/23 21:00 09/02/23 21:30 Temperature Pulse Rate 97 H Respiratory Rate Blood Pressure 145/88 H 140/83 Pulse Oximetry 99 Oxygen Delivery Method Room Air 09/02/23 21:30 09/02/23 22:00 09/02/23 22:00 Temperature Pulse Rate 104 H 92 H Respiratory Rate Blood Pressure 146/88 H Pulse Oximetry 100 99 Oxygen Delivery Method 09/02/23 22:30 09/02/23 22:30 Temperature Pulse Rate 94 H Respiratory Rate Blood Pressure 154/96 H Pulse Oximetry 100 Oxygen Delivery Method Oxygen Delivery Method Room Air Cardio Rate: regular rate Rhythm: regular rhythm GI Inspection: normal to inspection Skin Other: RLE cellulitis Neuro Other: w/o deficits Extrem Right lower extremity: edema Details: non-pitting and 2+ Other: Tender Rt LE Psych Other: lucid Objective Labs 09/02/23 19:35 09/02/23 19:35 Labs: Laboratory Results - last 24 hr 09/02/23 19:35 WBC 8.9 RBC 4.32 L Hgb 11.4 L Hct 34.2 L MCV 79.3 L MCH 26.4 MCHC 33.4 RDW 14.9 H Plt Count 358 Neut % (Auto) 72.6 Lymph % (Auto) 16.5 L [place] % (Auto) 8.1 Eos % (Auto) 1.8 L Baso % (Auto) 1.0 Neut # (Auto) 6500 Lymph # (Auto) 1500 [place] # (Auto) 700 Eos # (Auto) 200 Baso # (Auto) 100 PT 12.2 INR 1.1 Sodium 141 Potassium 3.2 L Chloride 104 Carbon Dioxide 33 H BUN 9 Creatinine 0.65 L Estimated GFR > 60 BUN/Creatinine Ratio 13.8 Glucose 117 H Lactate 0.8 Calcium 9.1 Magnesium 2.0 Total Bilirubin 0.8 AST 25 ALT 14 Alkaline Phosphatase 74 Total Protein 8.1 Albumin 4.2 Globulin 3.9 Albumin/Globulin Ratio 1.1 Procalcitonin 0.07 Ethyl Alcohol < 10 Assessment & Plan Assessment and plan (1) Cellulitis of right lower extremity: Status: Acute (2) Hypokalemia: Status: Acute (3) Smoker: Status: Acute Assessment & Plan narrative: 1. RLE Cellulitis - recurrent, one in 2021 - considering it's size, optimally he needs several doses of IV abx to prevent recurrence - elevate RLE while in bed or in chair - pain management prn - started empiric Rocephin and vancomycin in the ED 2. Hypokalemia - minor, KCl 40 mEq po x 1 - Mg WNR - 2 - BMP in AM 3. Smoker - nicotine replacement - albuterol prn DVT prophylaxis - Lovenox Patient evaluated from [place], [place] via telemedicine video and sound communication device with electronic stetoscope capability and assisting nurse at bedside.
[2023-09-02 23:31] LABS: Appearance Urine UA CLEAR; Bilirubin Urine UA NEGATIVE (NEGATIVE); Color Urine UA YELLOW; Glucose Urine UA NEGATIVE (Negative); Ketones Urine UA TRACE (NEGATIVE); Leukocyte Esterase Urine UA NEGATIVE (NEGATIVE); Nitrite Urine UA NEGATIVE (Negative); Occult Blood Urine UA NEGATIVE (Negative); Protein Urine UA NEGATIVE (Negative); Specific Gravity Urine UA 1.015 (1.000-1.035); Urobilinogen Urine UA 0.2 E.U./dL (0.2); pH Urine UA 7.5 (4.5-8.0)
[2023-09-02 23:38] LABS: UR Morphine/Opiate cutoff 300 Negative (Negative); Urine Amphetamines Positive (Negative); Urine Barbiturates Negative (Negative); Urine Benzodiazepines Negative (Negative); Urine Cocaine Negative (Negative); Urine MDMA Negative (Negative); Urine Methadone Negative (Negative); Urine Methamphetamines Positive (Negative); Urine Oxycodone Negative (Negative); Urine Phencyclidine Negative (Negative); Urine Tetrahydrocannabinol Positive (Negative); Urine Tricyclic Antidepressant Negative (Negative)
[2023-09-02 23:40] LABS: Bacteria Urine None Seen; Culture Indicated Urine Cult Not Indicated; RBC Urine None Seen (0-5/HPF); Squamous Epithelial Cell Urine 0-1 /HPF (0-5/HPF); Urine Volume 10mL (spun); WBC Urine None Seen (0-5/HPF)
--- NOTE | 2023-09-02 23:56 | P.HP_ITS ---
History of Present Illness History of Present Illness Chief complaint: Right lower leg swelling and pain Narrative: 48 y/o without PMH, presented to ED with progressive swelling, tenderness and pain of right lower leg, started several days ago. Very similar visit 2 years ago, with RLE cellulitis and one draining wound over the thacker but with smaller affected area allowing for PO abx. ED workup unremarkable. Vitals stable, not septic, placed in observation for 1-2 days of IV abx due to the size of infected area. He does not report fever, chills or sweats. [facility] Social History Smoking Status: Current some day smoker Meds Home Medications and Allergies Home Medications Medication Instructions Recorded Confirmed Type amoxicillin 875 mg-potassium 1 tab PO BID cellulitis #20 tabs 03/03/22 Rx clavulanate 125 mg tablet mupirocin calcium 2 % topical cream 1 applic topical TID #30 grams 03/03/22 Rx Allergies Allergy/AdvReac Type Severity Reaction Status Date / Time No Known Drug Allergies Allergy Verified 03/03/22 17:49 Review of Systems Constitutional Comments: Without fever or chills Cardiovascular Comments: w/o palpitations or chest pain Respiratory Comments: w/o shortness of breath Gastrointestinal Comments: w/o complaints Musculoskeletal Comments: Rt lower leg pain Exam Vital Signs (past 8 hours): - 09/02/23 19:12 09/02/23 19:59 09/02/23 20:00 Temperature 98.3 F Pulse Rate 110 H 108 H Respiratory Rate 18 Blood Pressure 162/96 H 143/86 H Pulse Oximetry 99 98 Oxygen Delivery Method Room Air Room Air Oxygen Flow Rate 09/02/23 20:00 09/02/23 20:30 09/02/23 20:30 Temperature Pulse Rate 108 H 97 H Respiratory Rate Blood Pressure 140/82 Pulse Oximetry 98 97 Oxygen Delivery Method Room Air Room Air Oxygen Flow Rate 09/02/23 21:00 09/02/23 21:00 09/02/23 21:30 Temperature Pulse Rate 97 H Respiratory Rate Blood Pressure 145/88 H 140/83 Pulse Oximetry 99 Oxygen Delivery Method Room Air Oxygen Flow Rate 09/02/23 21:30 09/02/23 22:00 09/02/23 22:00 Temperature Pulse Rate 104 H 92 H Respiratory Rate Blood Pressure 146/88 H Pulse Oximetry 100 99 Oxygen Delivery Method Oxygen Flow Rate 09/02/23 22:30 09/02/23 22:30 09/02/23 23:00 Temperature Pulse Rate 94 H Respiratory Rate Blood Pressure 154/96 H 156/99 H Pulse Oximetry 100 Oxygen Delivery Method Oxygen Flow Rate 09/02/23 23:00 09/02/23 23:44 Temperature 98.3 F Pulse Rate 95 H 94 H Respiratory Rate 16 Blood Pressure 162/97 H Pulse Oximetry 97 100 Oxygen Delivery Method Oxygen Flow Rate 0 Oxygen Delivery Method Room Air Oxygen Flow Rate 0 Const General: cooperative and disheveled HENMT Other: poor dentition Resp Other: Normal respiratory effort Cardio Other: RRR Skin Other: Right lower leg with circumferential swelling, erythema, tenderness, multiple superficial wounds, some oozing small amount of serosanguineous fluid, most scabbed. Neuro Other: w/o obvious deficits Extrem Right lower extremity: edema and lower leg Psych Other: lucid, appropriate mood and affect Objective Labs 09/02/23 19:35 09/02/23 19:35 Labs: Laboratory Results - last 24 hr 09/02/23 09/02/23 09/02/23 19:35 23:23 23:23 WBC 8.9 RBC 4.32 L Hgb 11.4 L Hct 34.2 L MCV 79.3 L MCH 26.4 MCHC 33.4 RDW 14.9 H Plt Count 358 Neut % (Auto) 72.6 Lymph % (Auto) 16.5 L [place] % (Auto) 8.1 Eos % (Auto) 1.8 L Baso % (Auto) 1.0 Neut # (Auto) 6500 Lymph # (Auto) 1500 [place] # (Auto) 700 Eos # (Auto) 200 Baso # (Auto) 100 PT 12.2 INR 1.1 Sodium 141 Potassium 3.2 L Chloride 104 Carbon Dioxide 33 H BUN 9 Creatinine 0.65 L Estimated GFR > 60 BUN/Creatinine Ratio 13.8 Glucose 117 H Lactate 0.8 Calcium 9.1 Magnesium 2.0 Total Bilirubin 0.8 AST 25 ALT 14 Alkaline Phosphatase 74 Total Protein 8.1 Albumin 4.2 Globulin 3.9 Albumin/Globulin Ratio 1.1 Procalcitonin 0.07 Urine Color Yellow Urine Appearance Clear Urine pH 7.5 TNP Ur Specific [place] 1.015 Urine Protein Negative Urine Glucose (UA) Negative Urine Ketones Trace H Urine Occult Blood Negative Urine Nitrate Negative Urine Bilirubin Negative Urine Urobilinogen 0.2 Ur Leukocyte Esterase Negative Urine RBC None seen Urine WBC None seen Ur Squamous Epith Cells 0-1 /hpf Urine Bacteria None seen Ur Culture Indicated? Cult not indicated Vol Urine Centrifuged 10ml (spun) U Opiates 300ng/mL cut Negative Ur Oxycodone Screen Negative Urine Methadone Screen Negative Ur Barbiturates Screen Negative U Tricyclic Antidepress Negative Ur Phencyclidine Scrn Negative Ur Amphetamines Screen Positive H U Methamphetamines Scrn Positive H Ur MDMA Scrn (Ecstasy) Negative U Benzodiazepines Scrn Negative Urine Cocaine Screen Negative U Marijuana (THC) Screen Positive H Urine Specific [place] TNP Ethyl Alcohol < 10 Ur Creatinine TNP
[2023-09-03] MEDS: HYDROCODONE/ACET 5/325 TABLET 2 TAB PO ×2 (00:15→05:47)
--- NOTE | 2023-09-03 03:48 | PC.ADMIT ---
[id number] [facility] Admission Note: Patient admitted to AC unit from ED @ 23:30. Transferred to bed independently. Alert and oriented x 4, cooperative. Oriented to room and call light. Bed in low, locked position, and call light within reach. The patient,Arnoldo Hernández,48 y/o, was given written information regarding hospital policies, unit procedures and contact persons. Patient's smoking status: Current some day smoker. Vital Signs - 8 hr 09/02/23 19:12 09/02/23 19:59 09/02/23 20:00 Temperature 98.3 F Pulse Rate 110 H 108 H Respiratory Rate 18 Blood Pressure 162/96 H 143/86 H Pulse Oximetry 99 98 Oxygen Delivery Method Room Air Room Air Oxygen Flow Rate 09/02/23 20:00 09/02/23 20:30 09/02/23 20:30 Temperature Pulse Rate 108 H 97 H Respiratory Rate Blood Pressure 140/82 Pulse Oximetry 98 97 Oxygen Delivery Method Room Air Room Air Oxygen Flow Rate 09/02/23 21:00 09/02/23 21:00 09/02/23 21:30 Temperature Pulse Rate 97 H Respiratory Rate Blood Pressure 145/88 H 140/83 Pulse Oximetry 99 Oxygen Delivery Method Room Air Oxygen Flow Rate 09/02/23 21:30 09/02/23 22:00 09/02/23 22:00 Temperature Pulse Rate 104 H 92 H Respiratory Rate Blood Pressure 146/88 H Pulse Oximetry 100 99 Oxygen Delivery Method Oxygen Flow Rate 09/02/23 22:30 09/02/23 22:30 09/02/23 23:00 Temperature Pulse Rate 94 H Respiratory Rate Blood Pressure 154/96 H 156/99 H Pulse Oximetry 100 Oxygen Delivery Method Oxygen Flow Rate 09/02/23 23:00 09/02/23 23:00 09/02/23 23:44 Temperature 98.3 F Pulse Rate 95 H 94 H Respiratory Rate 16 Blood Pressure 162/97 H Pulse Oximetry 97 100 Oxygen Delivery Method Room Air Oxygen Flow Rate 0
[2023-09-03 05:19] LABS: Add Manual Diff / Slide Review NO; Basophils Absolute Auto 100 /uL (0-100); Basophils Percent Auto 0.7 % (0-2); Eosinophils Absolute Auto 200 /uL (0-450); Eosinophils Percent Auto 2.8 % (2-4); Hematocrit 30.9 % (41-53); Hemoglobin 10.1 g/dL (13.5-17.5); Lymphocytes Absolute Auto 1600 /uL (1100-4500); Lymphocytes Percent Auto 20.1 % (25-40); Mean Corpuscular HGB Conc 32.6 % (30-36); Mean Corpuscular Hemoglobin 25.9 PG (26-34); Mean Corpuscular Volume 79.5 fL (80-100); Monocytes Absolute Auto 800 /uL (0-900); Monocytes Percent Auto 10.3 % (3-14); Neutrophils Absolute Auto 5400 /uL (1500-7000); Neutrophils Percent Auto 66.1 % (50-75); Platelet Count 297 X10^3/uL (150-400); Red Blood Cell Count 3.88 X10^6/uL (4.5-5.9); Red Cell Distribution Width 14.5 % (11.6-14.8); White Blood Cell Count 8.1 X10^3/uL (4.5-11.0)
[2023-09-03 05:33] LABS: BUN Creatinine Ratio 12.1 (6-22); Blood Urea Nitrogen 8 mg/dL (9-20); Calcium 8.4 mg/dL (8.4-10.2); Carbon Dioxide 27 mmol/L (22-32); Chloride 108 mmol/L (98-107); Estimated Glomerular Filt Rate > 60 mL/min (>60); Glucose 105 mg/dL (70-100); HEMOLYSIS < 15 (0-50); Potassium 3.6 mmol/L (3.4-5.1); Sodium 138 mmol/L (137-145)
[2023-09-03] MEDS: VANCOMYCIN 1,250 MG/250 ML PIGGYBACK 166.667 MG IV (05:34)
[2023-09-03 08:00] VITALS: BP 138/91; PULSE 88; RESP 16; TEMP 36.8; O2SAT 98
--- NOTE | 2023-09-03 08:25 | PM.PN.1 ---
Subjective Subjective Interval history: Cellulitis improving. Still with open wounds on RLE thacker and lateral calf. Wound care consulted for assessment tomorrow. Exam Vital Signs (past 8 hours): - 09/02/23 23:44 Temperature 98.3 F Pulse Rate 94 H Respiratory Rate 16 Blood Pressure 162/97 H Pulse Oximetry 100 Oxygen Flow Rate 0 Oxygen Delivery Method Room Air Oxygen Flow Rate 0 Cardio Rate: regular rate Rhythm: regular rhythm GI Inspection: normal to inspection Skin Other: RLE cellulitis Neuro Other: w/o deficits Extrem Right lower extremity: edema Details: non-pitting and 2+ Other: Tender Rt LE with redness, swelling and open wounds with some necrotic skin present Psych Other: lucid Objective Labs 09/03/23 04:57 09/03/23 04:57 Labs: Laboratory Results - last 24 hr 09/02/23 09/02/23 09/02/23 19:35 23:23 23:23 WBC 8.9 RBC 4.32 L Hgb 11.4 L Hct 34.2 L MCV 79.3 L MCH 26.4 MCHC 33.4 RDW 14.9 H Plt Count 358 Neut % (Auto) 72.6 Lymph % (Auto) 16.5 L [place] % (Auto) 8.1 Eos % (Auto) 1.8 L Baso % (Auto) 1.0 Neut # (Auto) 6500 Lymph # (Auto) 1500 [place] # (Auto) 700 Eos # (Auto) 200 Baso # (Auto) 100 PT 12.2 INR 1.1 Sodium 141 Potassium 3.2 L Chloride 104 Carbon Dioxide 33 H BUN 9 Creatinine 0.65 L Estimated GFR > 60 BUN/Creatinine Ratio 13.8 Glucose 117 H Lactate 0.8 Calcium 9.1 Magnesium 2.0 Total Bilirubin 0.8 AST 25 ALT 14 Alkaline Phosphatase 74 Total Protein 8.1 Albumin 4.2 Globulin 3.9 Albumin/Globulin Ratio 1.1 Procalcitonin 0.07 Urine Color Yellow Urine Appearance Clear Urine pH 7.5 TNP Ur Specific [place] 1.015 Urine Protein Negative Urine Glucose (UA) Negative Urine Ketones Trace H Urine Occult Blood Negative Urine Nitrate Negative Urine Bilirubin Negative Urine Urobilinogen 0.2 Ur Leukocyte Esterase Negative Urine RBC None seen Urine WBC None seen Ur Squamous Epith Cells 0-1 /hpf Urine Bacteria None seen Ur Culture Indicated? Cult not indicated Vol Urine Centrifuged 10ml (spun) U Opiates 300ng/mL cut Negative Ur Oxycodone Screen Negative Urine Methadone Screen Negative Ur Barbiturates Screen Negative U Tricyclic Antidepress Negative Ur Phencyclidine Scrn Negative Ur Amphetamines Screen Positive H U Methamphetamines Scrn Positive H Ur MDMA Scrn (Ecstasy) Negative U Benzodiazepines Scrn Negative Urine Cocaine Screen Negative U Marijuana (THC) Screen Positive H Urine Specific [place] TNP Ethyl Alcohol < 10 Ur Creatinine TNP 09/03/23 04:57 WBC 8.1 RBC 3.88 L Hgb 10.1 L Hct 30.9 L MCV 79.5 L MCH 25.9 L MCHC 32.6 RDW 14.5 Plt Count 297 Neut % (Auto) 66.1 Lymph % (Auto) 20.1 L [place] % (Auto) 10.3 Eos % (Auto) 2.8 Baso % (Auto) 0.7 Neut # (Auto) 5400 Lymph # (Auto) 1600 [place] # (Auto) 800 Eos # (Auto) 200 Baso # (Auto) 100 PT INR Sodium 138 Potassium 3.6 Chloride 108 H Carbon Dioxide 27 BUN 8 L Creatinine 0.66 Estimated GFR > 60 BUN/Creatinine Ratio 12.1 Glucose 105 H Lactate Calcium 8.4 Magnesium Total Bilirubin AST ALT Alkaline Phosphatase Total Protein Albumin Globulin Albumin/Globulin Ratio Procalcitonin Urine Color Urine Appearance Urine pH Ur Specific [place] Urine Protein Urine Glucose (UA) Urine Ketones Urine Occult Blood Urine Nitrate Urine Bilirubin Urine Urobilinogen Ur Leukocyte Esterase Urine RBC Urine WBC Ur Squamous Epith Cells Urine Bacteria Ur Culture Indicated? Vol Urine Centrifuged U Opiates 300ng/mL cut Ur Oxycodone Screen Urine Methadone Screen Ur Barbiturates Screen U Tricyclic Antidepress Ur Phencyclidine Scrn Ur Amphetamines Screen U Methamphetamines Scrn Ur MDMA Scrn (Ecstasy) U Benzodiazepines Scrn Urine Cocaine Screen U Marijuana (THC) Screen Urine Specific [place] Ethyl Alcohol Ur Creatinine PFSH Social History household members: none Smoking Status: Current some day smoker Assessment & Plan Assessment & Plan narrative: # RLE Cellulitis - recurrent, one in 2021 - considering it's size, optimally he needs several doses of IV abx to prevent recurrence - elevate RLE while in bed or in chair - pain management prn - started empiric Rocephin and vancomycin in the ED - wound care consulted due to open wounds which need possible debridement and dressing recs # Hypokalemia - minor, KCl 40 mEq po x 1 - Mg WNR - 2 - monitor # Smoker - nicotine replacement - albuterol prn # meth use -Utox positive for meth DVT prophylaxis - Lovenox Dispo: Home in 1-2 days on po abx.
[2023-09-03] MEDS: ENOXAPARIN 40 MG/0.4 ML SYRINGE SUBCUT (08:35)
[2023-09-03] MEDS: IBUPROFEN 600 MG TABLET PO (08:37)
--- NOTE | 2023-09-03 11:39 | CM.DANOTE ---
Patient is a 48 yo male who was admitted on 09/02/23 for Leg Swelling/Cellulitis. Pt has [employer] and [employer] for insurance and he has no PCP. EMR was reviewed. Per MD, pt with hx of leg cellulitis and admitted for IV-Abx and his UDS+ meth, amphetamines, THC. SW met bedside with pt and explained role and he confirms that he is currently living in his Je and tends to travel around [facility] mostly. Pt ambulates independently and no DME for mobility, drives his own vehicle, and is staying by himself in his Jeep. Pt states he has family locally (in [place]) but since COVID pandemic pt has not been allowed on his family's property as pt made the decision not to have the COVID vaccinations. Pt states he has local supportive friends if assist ever needed. Pt confirms that two years ago he had cellulitis in his leg and was able to d/c from the ED with PO abx. Pt denies any hx of SNF or HH and does not currently have DPOA pwk completed. Pt states he is not on any housing lists and has not been working with [facility] as he prefers to currently live in my own vehicle as the housing options have strict requirements and rules. Pt does not feel that he needs assist or support from his [facility] as he states he only occasionally uses substances and declines any [facility] resources at this time. Pt interested in reviewing local PCP list as he states he does not have a PCP at this time as he has not had many medical needs to be addressed but aware that being established with PCP would be beneficial for any further medical concerns or Rx needed and agreeable to reviewing possible PCP options for [facility]. Pt does not anticipate any needs at discharge and states his preference is to d/c back to his Jeep and states he has not had any prior barriers to getting Rx filled at the Pharmacy and feels his Jeep is his preferred d/c destination. Plan: SW to follow closely to confirm safe d/c back to pt's vehicle with PO abx and PCP list and any further identified discharge planning needs. FÉLIX Garcia Discharge Planning/Care Management CM Discharge Assessment Start: 09/03/23 11:36 Freq: Status: Active Protocol: Document 09/03/23 11:36 BF (Rec: 09/03/23 11:38 BF [id number]) Discharge Planning Assessment Assigned Mascara Molder FÉLIX Almanza DPOA/Assigned Designee Name none Advance Directives? No Advance Directives on File No History Provided By Patient,Medical Record Has Patient been admitted in last 30 No days? Prior Living Arrangements Homeless Comment Lives in his Jeep Household Members none Type of transporation used prior to Drives own vehicle admit Independent with ADL's Yes Is patient alert and oriented? Yes Caregiver for Another No Patient/Family Preference Drug/Alcohol Rehab Comment Pt currently declines housing or [facility] resources Barriers to Discharge No Discharge Plan Home Transportation Arrangement Own vehicle in the parking lot Additional Comment Provided PCP list as pt was agreeable to reviewing and maybe establishing with PCP Whiteboard Updated in Patient Room with Yes name and ext. # of Mascara Molder Review Status In Process Please Provide Date Initial DC 09/03/23 Assessment Was Performed Next Review Type Continued Stay Review
--- NOTE | 2023-09-03 13:52 | PC.NURSE ---
pt alert and oriented up to br indep. vss afibrile, right leg elevated on pillow states I think it feels less swollen denies pain.
[2023-09-03] MEDS: VANCOMYCIN 1,250 MG in SODIUM CHLORIDE 0.9% 250 ML 166.667 MG IV (14:07)
[2023-09-03 16:00] VITALS: BP 121/69; PULSE 84; RESP 20; TEMP 36.2; O2SAT 99
[2023-09-03] MEDS: cefTRIAXone 1,000 MG in SODIUM CHLORIDE 0.9% 100 ML 200 MG IV (20:01)
[2023-09-03] MEDS: VANCOMYCIN TROUGH 1 REQUEST MISC (22:59)
[2023-09-03 23:30] LABS: Vancomycin Trough 8.8 ug/mL (10-20)
[2023-09-04] VITALS: BP 134/92; PULSE 82; RESP 17; TEMP 36.7; O2SAT 97
[2023-09-04] MEDS: VANCOMYCIN 1,500 MG/300 ML PIGGYBACK 150 MG IV ×2 (00:07→09:06)
[2023-09-04 05:23] LABS: BUN Creatinine Ratio 9.9 (6-22); Blood Urea Nitrogen 7 mg/dL (9-20); Calcium 8.9 mg/dL (8.4-10.2); Carbon Dioxide 26 mmol/L (22-32); Chloride 108 mmol/L (98-107); Estimated Glomerular Filt Rate > 60 mL/min (>60); Glucose 101 mg/dL (70-100); HEMOLYSIS < 15 (0-50); Potassium 3.8 mmol/L (3.4-5.1); Sodium 139 mmol/L (137-145)
--- NOTE | 2023-09-04 07:48 | PM.PN.1 ---
Subjective Subjective Interval history: Exam Vital Signs (past 8 hours): - 09/04/23 00:00 Temperature 98.1 F Pulse Rate 82 Respiratory Rate 17 Blood Pressure 134/92 H Pulse Oximetry 97 Oxygen Flow Rate 0 Oxygen Delivery Method Room Air Oxygen Flow Rate 0 Narrative Exam Narrative: NAD, alert and oriented. Fluent speech. Lungs are clear, normal rate and effort. Heart is regular, no murmur gallop or rub. Abdomen is soft, non distended. Extremities are free of edema. Objective Labs 09/03/23 04:57 09/04/23 04:40 Labs: Laboratory Results - last 24 hr 09/03/23 09/04/23 22:52 04:40 Sodium 139 Potassium 3.8 Chloride 108 H Carbon Dioxide 26 BUN 7 L Creatinine 0.71 Estimated GFR > 60 BUN/Creatinine Ratio 9.9 Glucose 101 H Calcium 8.9 Vancomycin Trough 8.8 L PFSH Social History household members: none Smoking Status: Current some day smoker Assessment & Plan Assessment & Plan narrative: 1. RLE Cellulitis, present on admission and improving. - recurrent, one in 2021 - considering it's size, optimally he needs several doses of IV abx to prevent recurrence - elevate RLE while in bed or in chair - pain management prn - started empiric Rocephin and vancomycin in the ED - wound care consulted due to open wounds which need possible debridement and dressing recs 2. Hypokalemia, present on admission and improved. - minor, KCl 40 mEq po x 1 - Mg WNR - 2 - monitor 3. Smoker, present on admission and active. - nicotine replacement - albuterol prn 4. methamphetamine use, present on admission and active. -Utox positive for meth DVT prophylaxis - Lovenox Dispo: Home in 1-2 days on po abx.
[2023-09-04 08:00] VITALS: BP 129/80; PULSE 77; RESP 16; TEMP 36.3; O2SAT 98
[2023-09-04] MEDS: ENOXAPARIN 40 MG/0.4 ML SYRINGE SUBCUT (09:06)
--- NOTE | 2023-09-04 10:36 | CM.DPC ---
Addendum entered by FÉLIX Garcia 09/04/23 15:03: ADD: Per MD, placed Wound Consult order and they met bedside with pt and willing to see pt in the Wound Clinic today after discharge and pt medically stable to discharge. SW met bedside with pt and MD and pt is agreeable with d/c today and dressed and ready and willing to go right down to Wound Clinic at d/c. BF Original Note: DCP Cont: Per MD, pt may be medically stable to d/c home today vs tomorrow pending labs and cultures as pt still getting IV-Abx and will transition to PO abx at d/c. SW met bedside with pt again and updated on above and pt agreeable with d/c when medically stable. SW provided the PCP list for [facility] providers and pt confirms he is still interested in establishing with a PCP. Pt denies any other discharge needs at this time. Plan: SW to follow for d/c back to his Jeep when medically stable and outpt f/u to establish with PCP and declines any further resources at this time. FÉLIX Garcia
--- NOTE | 2023-09-04 14:10 | PM.CN ---
History of Present Illness Consult details Date Patient Seen: 09/04/23 Time Patient Seen: 13:45 Chief complaint: Right lower leg swelling and pain Narrative: The patient is a 48-year-old male who was admitted to the hospital on September 02, 2023 for evaluation treatment of cellulitis of the right lower extremity. The patient reports that he bumped his right lower leg against a table and developed a large open wound several days prior to admission. He then developed redness, pain, and swelling of the right lower extremity and the open wound began draining purulent fluid. He also developed scattered blisters elsewhere on the right lower extremity. He was admitted to the hospital placed on bedrest, elevation, and started on IV antibiotic therapy. He reports that the redness and pain are now much improved and plans are being made for discharged home on oral antibiotic therapy. He has remained afebrile. He has no prior history of vein disorders or DVT. The patient does have a history of cigarette and methamphetamine use. Meds Home Medications and Allergies Home Medications Medication Instructions Recorded Confirmed Type No Known Home Medications 09/03/23 09/03/23 History Allergies Allergy/AdvReac Type Severity Reaction Status Date / Time No Known Drug Allergies Allergy Verified 03/03/22 17:49 Review of Systems Review of Systems Narrative: Negative for any other recent changes in overall health Exam Vital Signs (past 8 hours): - 09/04/23 08:00 Temperature 97.4 F L Pulse Rate 77 Respiratory Rate 16 Blood Pressure 129/80 Pulse Oximetry 98 Oxygen Flow Rate 0 Oxygen Delivery Method Room Air Oxygen Flow Rate 0 Narrative Exam Narrative: Well-developed well-nourished male who is alert and oriented and in no apparent distress Skin Other: Resolving erythema right lower extremity with full-thickness open wound over the distal anterior tibia and scattered eschars. There is some slight purulent drainage from the wound over the anterior tibia. Mild swelling right lower extremity. Objective Labs 09/03/23 04:57 09/04/23 04:40 Labs: Laboratory Results - last 24 hr 09/03/23 09/04/23 22:52 04:40 Sodium 139 Potassium 3.8 Chloride 108 H Carbon Dioxide 26 BUN 7 L Creatinine 0.71 Estimated GFR > 60 BUN/Creatinine Ratio 9.9 Glucose 101 H Calcium 8.9 Vancomycin Trough 8.8 L PFSH Social History household members: none Tobacco & Substance Use Smoking Status: Current some day smoker Assessment & Plan Assessment and plan (1) Cellulitis of right lower extremity: Status: Acute (2) Unspecified open wound, right lower leg, initial encounter: Status: Acute Assessment & Plan narrative: Traumatic open wound right lower extremity in setting of resolving cellulitis with multiple satellite ulcers. Recommend daily dressing changes with Betadine and ABD pad, keep the leg elevated, follow up at wound center for further evaluation and treatment. Time Spent With Patient Time with patient: 30 to 49 minutes with 50% spent counseling/coordinating care
--- NOTE | 2023-09-04 14:59 | P.DS_ITS ---
History of Present Illness History of Present Illness Chief complaint: Right lower leg swelling and pain Narrative: 48 y/o without PMH, presented to ED with progressive swelling, tenderness and pain of right lower leg, started several days ago. Very similar visit 2 years ago, with RLE cellulitis and one draining wound over the thacker but with smaller affected area allowing for PO abx. ED workup unremarkable. Vitals stable, not septic, placed in observation for 1-2 days of IV abx due to the size of infected area. He does not report fever, chills or sweats. Discharge Providers Provider Date of admission: 09/02/23 22:33 Discharge Date: 09/04/23 Primary care physician: Doctor Herman MD Consults: 09/02/23 19:19 Consult to [employer] - [employer] Stat Comment: Pt living in his jeep 09/03/23 13:44 Consult to Wound Care Routine Comment: Consulting Provider: [facility]- Wound Care Discharge provider: Margarito Slater MD Summary Hospital Course Discharge Diagnosis: # RLE Cellulitis - recurrent, one in 2021 - considering it's size, optimally he needs several doses of IV abx to prevent recurrence - elevate RLE while in bed or in chair - pain management prn - started empiric Rocephin and vancomycin in the ED - wound care consulted due to open wounds which need possible debridement and dressing recs # Hypokalemia - minor, KCl 40 mEq po x 1 - Mg WNR - 2 - monitor # Smoker - nicotine replacement - albuterol prn # meth use -Utox positive for meth Hospital Course: He was admitted with right leg cellulitis and treated with IV antibiotics with good improvement of the redness of his leg. There is no evidence of fluid collection. On the day of discharge he was seen by wound care and he will follow up with the Wound Care Clinic. He will be transitioned to oral antibiotics and continue to elevate the leg at home. He is agreeable to discharge home. Status at Discharge Cognitive/behavioral status at discharge: oriented Functional status at discharge: independent ambulation Overall status at discharge: patient is back to baseline Time Spent with Patient Time spent: Greater than 30 minutes Exam Vital Signs (past 8 hours): - 09/04/23 08:00 Temperature 97.4 F L Pulse Rate 77 Respiratory Rate 16 Blood Pressure 129/80 Pulse Oximetry 98 Oxygen Flow Rate 0 Oxygen Delivery Method Room Air Oxygen Flow Rate 0 Narrative Exam Narrative: NAD, alert and oriented. Fluent speech. Lungs are clear, normal rate and effort. Heart is regular, no murmur gallop or rub. Abdomen is soft, non distended. Extremities are free of edema. His right leg has multiple excoriations and redness. This is improved. He also has multiple shallow ulcers with some eschar. Objective Labs 09/03/23 04:57 09/04/23 04:40 Labs: Laboratory Results - last 24 hr 09/03/23 09/04/23 22:52 04:40 Sodium 139 Potassium 3.8 Chloride 108 H Carbon Dioxide 26 BUN 7 L Creatinine 0.71 Estimated GFR > 60 BUN/Creatinine Ratio 9.9 Glucose 101 H Calcium 8.9 Vancomycin Trough 8.8 L PFSH Social History household members: none Smoking Status: Current some day smoker Discharge Assessment & Plan Assessment and Plan Assessment: 1. Right leg cellulitis, present on admission and improving. 2. Hypokalemia, present on admission and resolved. 3. Tobacco dependence, present on admission and active. 4. Methamphetamine abuse, present on admission and active. Plan of Treatment: He is discharged home with a 7 day course of amoxicillin 500 t.i.d. and doxycycline 100 mg p.o. b.i.d.. He will follow up with Wound Care for ongoing wound dressing needs. He is asked to follow up with primary care within the next 7 days. Discharge Plan Discharge Plan Patient Disposition: Home Provider Discharge Comment: Stable for discharge. Take antibiotic twice a day for 7 days. Check in with the wound care center today after discharge. Discharge orders & Medications Prescriptions: New doxycycline hyclate 100 mg capsule 100 mg PO BID Qty: 14 0RF amoxicillin 500 mg capsule 500 mg PO Q8H Qty: 21 0RF Medication counseling provided by Pharmacist: No Follow up/Referrals: Herman,MD Antolin [Primary Care Provider] - Discharge Health Status Multidrug resistant organism: No MDRO Diet/Activity/Treatments Diet: Diet as Tolerated Skin/Wound/Dressing Care Report to your healthcare provider any signs of infection, such as:: chills, fever, increased pain and unusual drainage Visit Report/Discharge Packet Instructions: DI for Cellulitis -- Adult, Doxycycline, Amoxicillin Stand Alone Forms: Patient Portal/API Discharge Data Primary Care Provider: Miscellaneous,Doctor Attending Provider: Viktor Edward Admit Date/Time: 09/02/23 22:33
--- NOTE | 2023-09-15 07:46 | PC.NURSE ---
Late entry: Vancomycin infusion initiated 09/02 at 0534 complete at 0724.
== END 2023-09-04 15:30 | disposition home or self-care (01) ==
LOC: ED 19:40 → AC 22:34
PROVIDERS: Admitting Provider Internal Medicine; Emergency Provider Emergency Medicine; Referring Provider Emergency Medicine; Visit Provider Internal Medicine
DX: L03.115 Cellulitis of right lower limb (principal); E87.6 Hypokalemia; F17.210 Nicotine dependence, cigarettes, uncomplicated; F15.10 Other stimulant abuse, uncomplicated
CPT/HCPCS: 36415; 80048; 80053; 80202; 80305; 80320; 81001; 83605; 83735; 84145; 85025; 85610; 87040; 93005; 93010; 93971; 96365; 96366; 96368; 96372; 99232; 99284; G0378; J0696; J1650

== ENCOUNTER 2024-01-30 05:41 | Observation (INO) | payer OTHER, MEDICAID, SELFPAY ==
[2023-09-02 23:00] VITALS: BMI 28.2
[2024-01-30] VITALS (10 sets, daily range): BP systolic 152–172; BP diastolic 90–103; PULSE 75–107; RESP 16–18; TEMP 37–37.3; O2SAT 96–100; BMI 26.9
--- NOTE | 2024-01-30 05:50 | DI.RAD.S_ITS ---
PROCEDURE: XR FINGER RT MIN 2V INDICATIONS: finger swelling/wound TECHNIQUE: AP hand, 2 views of the 2 finger(s) acquired. COMPARISON: None. FINDINGS: Bones: No fractures or dislocations. No suspicious bony lesions. No osseous erosions or periosteal reaction. Soft tissues: No suspicious soft tissue calcifications. Second digit soft tissue swelling. No soft tissue gas. IMPRESSION: No maria m evidence of osteomyelitis. Plain film radiographs can be insensitive to osteomyelitis during the initial 15 days of the disease process. If there is clinical concern for osteomyelitis, then three-phase nuclear medicine bone scan or MRI should be considered for further evaluation. Dictated by: Gladys Hobson MD, PhD on 01/30/2024 at 9:11 Approved by: Gladys Hobson MD, PhD on 01/30/2024 at 9:12
--- NOTE | 2024-01-30 06:00 | ED_ITS ---
HPI - Skin/Abscess/Foreign Bdy <Shannon Ledbetter MD - Last Filed: 01/30/24 20:45> General Chief complaint: Extremity Injury, Upper Stated complaint: bite by something on rt finger now infected Time Seen by Provider: 01/30/24 05:45 Source: patient Mode of arrival: Ambulatory Limitations: no limitations History of Present Illness HPI narrative: 49yoM right hand dominant with PMH amphetamine abuse presents for 2 days of R index finger pain and swelling. Patient states that he thinks he may have been bitten by something. Over the last 2 days his finger has become progressively more swollen and painful. Denies fevers or chills. States that he was able to express a small amount of pus from a scab on his finger yesterday. Related Data Home Medications Medication Instructions Recorded Confirmed No Known Home Medications 01/30/24 01/30/24 Allergies Allergy/AdvReac Type Severity Reaction Status Date / Time No Known Drug Allergies Allergy Verified 01/30/24 05:47 Patient History <Shannon Ledbetter MD - Last Filed: 01/30/24 20:45> Social History household members: none Smoking Status: Current some day smoker Smoking Status: Current some day smoker alcohol intake frequency: holidays/special occasions only Substance Use Type: marijuana, amphetamines and methamphetamine Exam <Shannon Ledbetter MD - Last Filed: 01/30/24 20:45> Initial Vital Signs Initial Vital Signs: Vital Signs Temperature 99 F 01/30/24 05:47 Pulse Rate 107 H 01/30/24 05:47 Respiratory Rate 18 01/30/24 05:47 Blood Pressure 172/102 H 01/30/24 05:47 Pulse Oximetry 98 01/30/24 05:47 Oxygen Delivery Method Room Air 01/30/24 05:47 Const: Awake, alert, no acute distress, nontoxic appearing Cardiac: regular rate, regular rhythm RESP: unlabored, clear bilaterally, no wheezing MSK: swelling of R index finger, flexion and extension intact Skin: erythema extending from dorsum of R distal index finger to hand. Picked at scab on distal dorsal index finger. Small blister proximal dorsal index finger Neuro: AO x3, CN II-XII grossly intact, moves all extremities <Shannon Lew DO - Last Filed: 01/30/24 07:32> Initial Vital Signs Initial Vital Signs: Vital Signs Temperature 99 F 01/30/24 05:47 Pulse Rate 107 H 01/30/24 05:47 Respiratory Rate 18 01/30/24 05:47 Blood Pressure 172/102 H 01/30/24 05:47 Pulse Oximetry 98 01/30/24 05:47 Oxygen Delivery Method Room Air 01/30/24 05:47 Course <Shanonn Ledbetter MD - Last Filed: 01/30/24 20:45> Orders Ordered: Acetaminophen (Acetaminophen 325 Mg Tablet) 650 mg PO Q6H PRN PRN Reason: Fever/Mild Pain (1-3) Last Admin: 01/30/24 19:27 Dose: 650 mg Documented By: MM Hydromorphone HCl (Hydromorphone 0.5 Mg Inj) 0.5 mg IV Q2H PRN PRN Reason: Pain, Severe (7-10) Last Admin: 01/30/24 17:05 Dose: 0.5 mg Documented By: Admin: 01/30/24 11:02 Dose: 0.5 mg Documented By: SHAREE Dextrose/Sodium Chloride (Dextrose 5%-0.9% Ns) 1,000 mls @ 100 mls/hr IV CONT SCOTT Last Admin: 01/30/24 09:26 Dose: 100 mls/hr Documented By: SHAREE Ceftriaxone Sodium 2,000 mg/ (Sodium Chloride) 100 mls @ 200 mls/hr IV Q24H SCOTT Vancomycin HCl (Vancomycin) 1,250 mg in 250 mls @ 250 mls/hr IV Q8H SCOTT Last Infusion: 01/30/24 19:10 Dose: Infused Documented By: Admin: 01/30/24 17:04 Dose: 250 mls/hr Documented By: SHAREE Naloxone HCl (Naloxone 0.4 Mg/Ml Vial) 0.2 mg IV Q2MIN PRN PRN Reason: Opiate Reversal Oxycodone HCl (Oxycodone Ir 5 Mg Tablet) 5 mg PO Q3H PRN PRN Reason: Pain, Moderate (4-6) Last Admin: 01/30/24 19:27 Dose: 5 mg Documented By: SHAREE Oxycodone HCl (Oxycodone Ir 10 Mg Tablet) 10 mg PO Q3H PRN PRN Reason: Pain, Severe (7-10) Last Admin: 01/30/24 09:27 Dose: 10 mg Documented By: SHAREE Vancomycin HCl (Vancomycin Trough) 1 request [facility] [address]30 [facility] Stop: 01/31/24 06:31 Discontinued Medications Vancomycin HCl/Dextrose (Vancomycin) 2,000 mg in 400 mls @ 200 mls/hr IV NOW ONE Stop: 01/30/24 07:50 Last Infusion: 01/30/24 08:16 Dose: 200 mls/hr Documented By: Admin: 01/30/24 06:37 Dose: 200 mls/hr Documented By: PASTORA Ceftriaxone Sodium 2,000 mg/ (Sodium Chloride) 100 mls @ 200 mls/hr IV NOW ONE Stop: 01/30/24 05:51 Last Infusion: 01/30/24 06:37 Dose: Infused Documented By: Admin: 01/30/24 06:01 Dose: 200 mls/hr Documented By: PASTORA Oxycodone HCl (Oxycodone Ir 5 Mg Tablet) 5 mg PO NOW ONE Stop: 01/30/24 06:00 Last Admin: 01/30/24 06:06 Dose: 5 mg Documented By: PASTORA Vital Signs Vital signs: Vital Signs - 8 hr 01/30/24 05:47 01/30/24 05:47 01/30/24 06:00 Temperature 99 F Pulse Rate 107 H 105 H 99 H Respiratory Rate 18 Blood Pressure 172/102 H Pulse Oximetry 98 98 98 Oxygen Delivery Method Room Air Room Air 01/30/24 06:00 01/30/24 06:29 01/30/24 06:30 Temperature Pulse Rate 86 Respiratory Rate Blood Pressure 166/96 H 157/98 H Pulse Oximetry 96 Oxygen Delivery Method Room Air 01/30/24 07:00 Temperature Pulse Rate Respiratory Rate Blood Pressure 163/95 H Pulse Oximetry Oxygen Delivery Method <Shannon Lew DO - Last Filed: 01/30/24 07:32> Orders Ordered: Acetaminophen (Acetaminophen 325 Mg Tablet) 650 mg PO Q6H PRN PRN Reason: Fever/Mild Pain (1-3) Last Admin: 01/30/24 19:27 Dose: 650 mg Documented By: SHAREE Hydromorphone HCl (Hydromorphone 0.5 Mg Inj) 0.5 mg IV Q2H PRN PRN Reason: Pain, Severe (7-10) Last Admin: 01/30/24 17:05 Dose: 0.5 mg Documented By: Admin: 01/30/24 11:02 Dose: 0.5 mg Documented By: SHAREE Dextrose/Sodium Chloride (Dextrose 5%-0.9% Ns) 1,000 mls @ 100 mls/hr IV CONT SCOTT Last Admin: 01/30/24 09:26 Dose: 100 mls/hr Documented By: SHAREE Ceftriaxone Sodium 2,000 mg/ (Sodium Chloride) 100 mls @ 200 mls/hr IV Q24H SCOTT Vancomycin HCl (Vancomycin) 1,250 mg in 250 mls @ 250 mls/hr IV Q8H SCOTT Last Infusion: 01/30/24 19:10 Dose: Infused Documented By: Admin: 01/30/24 17:04 Dose: 250 mls/hr Documented By: SHAREE Naloxone HCl (Naloxone 0.4 Mg/Ml Vial) 0.2 mg IV Q2MIN PRN PRN Reason: Opiate Reversal Oxycodone HCl (Oxycodone Ir 5 Mg Tablet) 5 mg PO Q3H PRN PRN Reason: Pain, Moderate (4-6) Last Admin: 01/30/24 19:27 Dose: 5 mg Documented By: SHAREE Oxycodone HCl (Oxycodone Ir 10 Mg Tablet) 10 mg PO Q3H PRN PRN Reason: Pain, Severe (7-10) Last Admin: 01/30/24 09:27 Dose: 10 mg Documented By: SHAREE Vancomycin HCl (Vancomycin Trough) 1 request [facility] [address]30 [facility] Stop: 01/31/24 06:31 Discontinued Medications Vancomycin HCl/Dextrose (Vancomycin) 2,000 mg in 400 mls @ 200 mls/hr IV NOW ONE Stop: 01/30/24 07:50 Last Infusion: 01/30/24 08:16 Dose: 200 mls/hr Documented By: Admin: 01/30/24 06:37 Dose: 200 mls/hr Documented By: PASTORA Ceftriaxone Sodium 2,000 mg/ (Sodium Chloride) 100 mls @ 200 mls/hr IV NOW ONE Stop: 01/30/24 05:51 Last Infusion: 01/30/24 06:37 Dose: Infused Documented By: Admin: 01/30/24 06:01 Dose: 200 mls/hr Documented By: PASTORA Oxycodone HCl (Oxycodone Ir 5 Mg Tablet) 5 mg PO NOW ONE Stop: 01/30/24 06:00 Last Admin: 01/30/24 06:06 Dose: 5 mg Documented By: PASTORA Vital Signs Vital signs: Vital Signs - 8 hr 01/30/24 05:47 01/30/24 05:47 01/30/24 06:00 Temperature 99 F Pulse Rate 107 H 105 H 99 H Respiratory Rate 18 Blood Pressure 172/102 H Pulse Oximetry 98 98 98 Oxygen Delivery Method Room Air Room Air 01/30/24 06:00 01/30/24 06:29 01/30/24 06:30 Temperature Pulse Rate 86 Respiratory Rate Blood Pressure 166/96 H 157/98 H Pulse Oximetry 96 Oxygen Delivery Method Room Air 01/30/24 07:00 Temperature Pulse Rate Respiratory Rate Blood Pressure 163/95 H Pulse Oximetry Oxygen Delivery Method MDM - Skin/Abscess/Foreign Bdy <Shannon Ledbetter MD - Last Filed: 01/30/24 20:45> Differential Diagnosis Differential diagnosis: Likely abscess of skin or subcutaneous tissue, cellulitis and insect bites Lab Data 01/30/24 05:52 01/30/24 05:52 Labs: Lab Results 01/30/24 Range/Units 05:52 WBC 10.8 (4.5-11.0) X10^3/uL RBC 4.44 L (4.5-5.9) X10^6/uL Hgb 11.9 L (13.5-17.5) g/dL Hct 36.3 L (41-53) % MCV 81.7 (80-100) fL MCH 26.7 (26-34) PG MCHC 32.7 (30-36) % RDW 16.9 H (11.6-14.8) % Plt Count 235 (150-400) X10^3/uL Neut % (Auto) 68.1 (50-75) % Lymph % (Auto) 20.1 L (25-40) % [place] % (Auto) 9.6 (3-14) % Eos % (Auto) 1.6 L (2-4) % Baso % (Auto) 0.6 (0-2) % Neut # (Auto) 7400 H (4455-8084) /uL Lymph # (Auto) 2200 (4419-2087) /uL [place] # (Auto) 1000 H (0-900) /uL Eos # (Auto) 200 (0-450) /uL Baso # (Auto) 100 (0-100) /uL Sodium 137 (137-145) mmol/L Potassium 3.5 (3.4-5.1) mmol/L Chloride 101 (98-107) mmol/L Carbon Dioxide 30 (22-32) mmol/L BUN 9 (9-20) mg/dL Creatinine 0.76 (0.66-1.25) mg/dL Estimated GFR > 60 (>60) mL/min BUN/Creatinine Ratio 11.8 (6-22) Glucose 109 H (70-100) mg/dL Calcium 8.9 (8.4-10.2) mg/dL Total Bilirubin 1.5 H (0.2-1.3) mg/dL AST 27 (17-59) IU/L ALT 17 (<50) IU/L Alkaline Phosphatase 66 (38-126) U/L Total Protein 7.1 (6.3-8.2) g/dL Albumin 4.2 (3.5-5.0) g/dL Globulin 2.9 (1.7-4.1) g/dL Albumin/Globulin Ratio 1.4 (1.0-2.8) MDM Narrative Medical decision making narrative: Rapidly progressing right index finger wound. Based on exam symptoms do not appear to be consistent with flexor tenosynovitis. Most of his pain and swelling is on the extensor surface of the index finger. Based on the extent of the swelling, location, and speed of progression over 2 days laboratory work and IV antibiotics ordered. Patient's hand is very filthy, covered in dirt, grime, and lint. Placed in clean water bath. <Shannon Lew, DO - Last Filed: 01/30/24 07:32> Lab Data Labs: Lab Results 01/30/24 Range/Units 05:52 WBC 10.8 (4.5-11.0) X10^3/uL RBC 4.44 L (4.5-5.9) X10^6/uL Hgb 11.9 L (13.5-17.5) g/dL Hct 36.3 L (41-53) % MCV 81.7 (80-100) fL MCH 26.7 (26-34) PG MCHC 32.7 (30-36) % RDW 16.9 H (11.6-14.8) % Plt Count 235 (150-400) X10^3/uL Neut % (Auto) 68.1 (50-75) % Lymph % (Auto) 20.1 L (25-40) % [place] % (Auto) 9.6 (3-14) % Eos % (Auto) 1.6 L (2-4) % Baso % (Auto) 0.6 (0-2) % Neut # (Auto) 7400 H (5872-5944) /uL Lymph # (Auto) 2200 (2913-5979) /uL [place] # (Auto) 1000 H (0-900) /uL Eos # (Auto) 200 (0-450) /uL Baso # (Auto) 100 (0-100) /uL Sodium 137 (137-145) mmol/L Potassium 3.5 (3.4-5.1) mmol/L Chloride 101 (98-107) mmol/L Carbon Dioxide 30 (22-32) mmol/L BUN 9 (9-20) mg/dL Creatinine 0.76 (0.66-1.25) mg/dL Estimated GFR > 60 (>60) mL/min BUN/Creatinine Ratio 11.8 (6-22) Glucose 109 H (70-100) mg/dL Calcium 8.9 (8.4-10.2) mg/dL Total Bilirubin 1.5 H (0.2-1.3) mg/dL AST 27 (17-59) IU/L ALT 17 (<50) IU/L Alkaline Phosphatase 66 (38-126) U/L Total Protein 7.1 (6.3-8.2) g/dL Albumin 4.2 (3.5-5.0) g/dL Globulin 2.9 (1.7-4.1) g/dL Albumin/Globulin Ratio 1.4 (1.0-2.8) MDM Narrative Medical decision making narrative: Rapidly progressing right index finger wound. Based on exam symptoms do not appear to be consistent with flexor tenosynovitis. Most of his pain and swelling is on the extensor surface of the index finger. Based on the extent of the swelling, location, and speed of progression over 2 days laboratory work and IV antibiotics ordered. Patient's hand is very filthy, covered in dirt, grime, and lint. Placed in clean water bath. 01/30/2024 Dr. Lew: Patient seen and evaluated by myself. States no medical issues does use tobacco, history of methamphetamine use patient denies recent, denies any injection. Patient has clear cellulitis with some pustules that are draining, fusiform digit, patient can flex extend somewhat but seems to be somewhat limited by his swelling. He is painful but not exquisitely so with the extension and has some tenderness over the palmar side but more throughout the finger. Patient denies any injection or IV drugs. X-ray shows no acute foreign body or gas, labs are overall appropriate patient does not appear to be septic. Discussed with Dr. Rosario, orthopedic surgery maybe a consult from medicine. He states low threshold to have an MRI if no improvement by later today. Spoke with Dr. Slater, hospitalist, who accepts, discussed recommendations from Orthopedic surgery to have MR of no improvement by later today. Patient has clear infection and finger possible early flexor tenosynovitis versus cellulitis. Discharge Plan Departure Patient Disposition: Admitted as Observation Clinical Impression: Cellulitis of finger Admit Date/Time: 01/30/24 07:30 Admit Provider: Margarito Slater
--- NOTE | 2024-01-30 06:00 | PC.NURSE ---
This nurse noted blood cultures not ordered. Verified with Dr. Ledbetter if she wanted them drawn/ordered before hanging antibiotics. Dr Ledbetter declined. Antibiotics running as ordered on AUG.
[2024-01-30] MEDS: cefTRIAXone 2,000 MG in SODIUM CHLORIDE 0.9% 100 ML 200 MG IV (06:01)
[2024-01-30 06:02] LABS: Add Manual Diff / Slide Review NO; Basophils Absolute Auto 100 /uL (0-100); Basophils Percent Auto 0.6 % (0-2); Eosinophils Absolute Auto 200 /uL (0-450); Eosinophils Percent Auto 1.6 % (2-4); Hematocrit 36.3 % (41-53); Hemoglobin 11.9 g/dL (13.5-17.5); Lymphocytes Absolute Auto 2200 /uL (1100-4500); Lymphocytes Percent Auto 20.1 % (25-40); Mean Corpuscular HGB Conc 32.7 % (30-36); Mean Corpuscular Hemoglobin 26.7 PG (26-34); Mean Corpuscular Volume 81.7 fL (80-100); Monocytes Absolute Auto 1000 /uL (0-900); Monocytes Percent Auto 9.6 % (3-14); Neutrophils Absolute Auto 7400 /uL (1500-7000); Neutrophils Percent Auto 68.1 % (50-75); Platelet Count 235 X10^3/uL (150-400); Red Blood Cell Count 4.44 X10^6/uL (4.5-5.9); Red Cell Distribution Width 16.9 % (11.6-14.8); White Blood Cell Count 10.8 X10^3/uL (4.5-11.0)
[2024-01-30] MEDS: OXYCODONE IR 5 MG TABLET PO ×2 (06:06→19:27)
[2024-01-30 06:12] LABS: Alanine Aminotransferase 17 IU/L (<50); Albumin 4.2 g/dL (3.5-5.0); Albumin Globulin Ratio 1.4 (1.0-2.8); Alkaline Phosphatase 66 U/L (38-126); Aspartate Aminotransferase 27 IU/L (17-59); BUN Creatinine Ratio 11.8 (6-22); Bilirubin Total 1.5 mg/dL (0.2-1.3); Blood Urea Nitrogen 9 mg/dL (9-20); Calcium 8.9 mg/dL (8.4-10.2); Carbon Dioxide 30 mmol/L (22-32); Chloride 101 mmol/L (98-107); Estimated Glomerular Filt Rate > 60 mL/min (>60); Globulin 2.9 g/dL (1.7-4.1); Glucose 109 mg/dL (70-100); HEMOLYSIS < 15 (0-50); Potassium 3.5 mmol/L (3.4-5.1); Sodium 137 mmol/L (137-145); Total Protein 7.1 g/dL (6.3-8.2)
[2024-01-30] MEDS: VANCOMYCIN 2,000 MG/400 ML PIGGYBACK 200 MG IV (06:37)
--- NOTE | 2024-01-30 08:20 | PM.HP.1 ---
History of Present Illness History of Present Illness Chief complaint: bite by something on rt finger now infected Narrative: From ED doctor: 49yoM right hand dominant with PMH amphetamine abuse presents for 2 days of R index finger pain and swelling. Patient states that he thinks he may have been bitten by something. Over the last 2 days his finger has become progressively more swollen and painful. Denies fevers or chills. States that he was able to express a small amount of pus from a scab on his finger yesterday. ED Course: Started on IV antibiotics ceftriaxone, and vancomycin at 5:00 a.m.. Orthopedics consulted. S: The patient can not really quantify how many days his finger has been swollen and red. There is some discharge over the D IP. He notes increased pain with trying to flex or extend the hand as well as dorsal pain over the body of the hand. No fevers, or chills. Imaging in the emergency department confined to an x-ray. Orthopedics was consulted. He denies any trauma that he remembers that may have caused this. He does have multiple excoriations over the dorsal aspect of his fingers and hand. [facility] Social History household members: none Smoking Status: Current some day smoker Meds Home Medications and Allergies Home Medications Medication Instructions Recorded Confirmed Type No Known Home Medications 01/30/24 01/30/24 History Allergies Allergy/AdvReac Type Severity Reaction Status Date / Time No Known Drug Allergies Allergy Verified 01/30/24 05:47 Review of Systems Review of Systems Narrative: All else reviewed and otherwise unremarkable except as noted in the history and physical. Exam Vital Signs (past 8 hours): - 01/30/24 05:47 01/30/24 05:47 01/30/24 06:00 Temperature 99 F Pulse Rate 107 H 105 H 99 H Respiratory Rate 18 Blood Pressure 172/102 H Pulse Oximetry 98 98 98 Oxygen Delivery Method Room Air Room Air 01/30/24 06:00 01/30/24 06:29 01/30/24 06:30 Temperature Pulse Rate 86 Respiratory Rate Blood Pressure 166/96 H 157/98 H Pulse Oximetry 96 Oxygen Delivery Method Room Air 01/30/24 07:00 01/30/24 07:30 01/30/24 08:00 Temperature Pulse Rate Respiratory Rate Blood Pressure 163/95 H 154/90 H 161/93 H Pulse Oximetry Oxygen Delivery Method 01/30/24 08:12 Temperature Pulse Rate 76 Respiratory Rate Blood Pressure Pulse Oximetry 100 Oxygen Delivery Method Room Air Oxygen Delivery Method Room Air Narrative Exam Narrative: NAD, alert and oriented, fluent speech, calm. Unkempt malodorous, poor dentition. Normocephalic skull, EOMI, anicteric sclera, symmetric pupils. Oropharynx unremarkable, no droop. Neck supple, midline trachea, no adenopathy. Lungs clear, normal rate and effort. Heart regular, no murmur gallop or rub. Abdomen is soft, non distended and non tender. Extremities are free of edema. Skin is free of rash or lesions. Joints are not swollen or deformed. Judgment appears to be normal. Hand: The right hand 2nd digit is diffusely swollen and there is 2 areas of laceration or punctures, 1 over the D IP with some drainage. The fingers diffusely tender. The dorsal aspect of the hand appears to be somewhat bogginess also tender. Objective Imaging Finger X-ray:: Radiologist's impression: No maria m evidence of osteomyelitis. Plain film radiographs can be insensitive to osteomyelitis during the initial 15 days of the disease process. If there is clinical concern for osteomyelitis, then three-phase nuclear medicine bone scan or MRI should be considered for further evaluation. Labs 01/30/24 05:52 01/30/24 05:52 Labs: Laboratory Results - last 24 hr 01/30/24 05:52 WBC 10.8 RBC 4.44 L Hgb 11.9 L Hct 36.3 L MCV 81.7 MCH 26.7 MCHC 32.7 RDW 16.9 H Plt Count 235 Neut % (Auto) 68.1 Lymph % (Auto) 20.1 L [place] % (Auto) 9.6 Eos % (Auto) 1.6 L Baso % (Auto) 0.6 Neut # (Auto) 7400 H Lymph # (Auto) 2200 [place] # (Auto) 1000 H Eos # (Auto) 200 Baso # (Auto) 100 Sodium 137 Potassium 3.5 Chloride 101 Carbon Dioxide 30 BUN 9 Creatinine 0.76 Estimated GFR > 60 BUN/Creatinine Ratio 11.8 Glucose 109 H Calcium 8.9 Total Bilirubin 1.5 H AST 27 ALT 17 Alkaline Phosphatase 66 Total Protein 7.1 Albumin 4.2 Globulin 2.9 Albumin/Globulin Ratio 1.4 Assessment & Plan Assessment & Plan narrative: 1. Right index finger bacterial tenosynovitis, present on admission and active. 2. Methamphetamine abuse, present on admission and active. Plan: -continue antibiotics with ceftriaxone and vancomycin per pharmacy. -wound culture. -orthopedics was consulted in the emergency department, Dr. Powers. -MRI hand, rule out deep space abscess or synovial abscess. Observation status, anticipate 1 night of hospital stay. Full resuscitation. SHEFALI is January 30. Time-Based Coding :: 30 min spent with patient and on the chart (including review of chart, obtaining history, exam, reviewing outside data, placing orders, documenting exam and treatment plan, and counseling patient) on 01/29.
[2024-01-30] MEDS: DEXTROSE 5%-0.9% NS 1,000 ML 100 ML IV ×2 (09:26→23:13)
[2024-01-30] MEDS: OXYCODONE IR 10 MG TABLET PO (09:27)
--- NOTE | 2024-01-30 09:42 | DI.MRI.S_ITS ---
PROCEDURE: MR HAND RT WO/W CON INDICATIONS: Hand infection TECHNIQUE: Noncontrast coronal T1 spin echo and STIR, sagittal T1 spin echo with fat saturation and STIR, axial T1 spin echo and T2 fast spin echo with fat saturation. After the administration of contrast, axial/sagittal/coronal T1 spin echo with fat saturation through the right hand . COMPARISON: [facility], CR, XR FINGER RT MIN 2V, 01/30/2024, 5:50. FINDINGS: Image quality: Excellent. Bones: Osteoarthritic changes are noted throughout right hand and wrist joints. Finding is most notably involving 1st CMC joint. No acute fracture or dislocation. No bony erosive changes or marrow edema. No abnormal periosteal reaction. Soft tissues: There is significant subcutaneous soft tissue edema and swelling over dorsal aspect of right hand and wrist extending to surrounding entire 2nd finger. No discrete drainable peripherally enhancing fluid collection is noted. No enhancing soft tissue mass is seen. The visualized right hand muscles show normal size and signal without abnormal intramuscular enhancement or collection. IMPRESSION: 1. Significant cellulitis over dorsal aspect of right hand and wrist extending to surround 2nd finger without discrete drainable abscess collection. No enhancing soft tissue mass. No abnormal muscle signal. 2. 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 No fracture or dislocation. No MR evidence of osteomyelitis. No abnormal intraosseous enhancement. Dictated by: Liam Powers M.D. on 01/30/2024 at 16:37 Approved by: Liam Powers M.D. on 01/30/2024 at 16:41
[2024-01-30] MEDS: HYDROMORPHONE 0.5 MG INJ IV ×2 (11:02→17:05)
[2024-01-30] MEDS: VANCOMYCIN 1,250 MG/250 ML PIGGYBACK 250 MG IV ×2 (17:04→23:11)
[2024-01-30] MEDS: ACETAMINOPHEN 325 MG TABLET 650 MG PO (19:27)
[2024-01-31] MEDS: OXYCODONE IR 10 MG TABLET PO ×2 (00:09→10:40)
[2024-01-31] MEDS: HYDROMORPHONE 0.5 MG INJ IV (01:14)
--- NOTE | 2024-01-31 02:27 | PC.NURSE ---
Patient is alert and oriented but flat affect and apathetic in responses. Breath sounds CTA with RA sat of 98%. HRR w/BP elevated at 152/97. Denied nausea. BT present and abdomen is soft. Voiding per urinal and denied dysuria; urine is light yellow and clear. Is able to turn himself in bed. Provided SBA when out of bed for safety. Bilateral calf SCD's applied at shift change. Right index finger is swollen and stiff; unable to bend at knuckle. 2 abrasions noted but no drainage. Complained of headache at shift change so medicated per Pamella Gomez Rn. At time of assessment stated finger pain was 9/10 so medicated with oxycodone but continued to complain of 8/10 pain so medicated with Dilaudid and is now asleep. Found knife, vape device and metal engraver in his bed so placed in nurse buffet server. Belongings placed on window seat and bed alarm activated to monitor his activity related to past history of drug abuse although patient reports he has not used in 2 months except for marijuana. Fall risk score is low.
[2024-01-31] MEDS: cefTRIAXone 2,000 MG in SODIUM CHLORIDE 0.9% 100 ML 200 MG IV (04:38)
[2024-01-31] MEDS: VANCOMYCIN TROUGH 1 REQUEST MISC (06:29)
[2024-01-31] MEDS: VANCOMYCIN 1,250 MG/250 ML PIGGYBACK 250 MG IV (06:30)
[2024-01-31 09:00] VITALS: O2SAT 95
[2024-01-31] MEDS: ACETAMINOPHEN 325 MG TABLET 650 MG PO (10:40)
[2024-01-31] MEDS: NICOTINE 14 PATCH 14 MG TOP (11:18)
[2024-01-31] MEDS: DEXTROSE 5%-0.9% NS 1,000 ML 100 ML IV ×2 (11:42→22:23)
--- NOTE | 2024-01-31 12:40 | PM.CN ---
History of Present Illness Consult details Date Patient Seen: 01/31/24 Time Patient Seen: 12:40 Chief complaint: bite by something on rt finger now infected Reason for consult: possible right index finger infection Requesting provider: Margarito Slater Narrative: 49yoM right hand dominant with PMH amphetamine abuse presented yesterday to ER for 2 days of R index finger pain and swelling. Patient states that he thinks he may have been bitten by something. Over the last 2 days his finger has become progressively more swollen and painful. Denies fevers or chills. States that he was able to express a small amount of pus from a scab on his finger yesterday. Meds Home Medications and Allergies Home Medications Medication Instructions Recorded Confirmed Type No Known Home Medications 01/30/24 01/30/24 History Allergies Allergy/AdvReac Type Severity Reaction Status Date / Time No Known Drug Allergies Allergy Verified 01/30/24 05:47 Review of Systems Review of Systems ROS: Yes All systems reviewed with the patient and are negative except as otherwise documented Exam Vital Signs (past 8 hours): Oxygen Delivery Method Room Air Oxygen Flow Rate 0 Narrative Exam Narrative: 49-year-old male resting comfortably in bed no apparent distress. The dorsal aspect of the right index finger shows 2 small areas of scale 1 just over the PIPJ joint and another just distal to the MP joint. 3-4 small areas of blistering which appeared to be filled with purulent material. He has mild pain with passive motion of the PIPJ joint. Patient has significant pain with passive range of motion of the MP joint. There is surrounding erythema past the MP joint. No active drainage. Sensation intact distally. Good capillary refill. Const General: cooperative and comfortable Nutritional Appearance: average body habitus Orientation: alert Objective Imaging MRI hand January 30, 2024: Radiologist's impression: 1. Significant cellulitis over dorsal aspect of right hand and wrist extending to surround 2nd finger without discrete drainable abscess collection. No enhancing soft tissue mass. No abnormal muscle signal. 2. 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 No fracture or dislocation. No MR evidence of osteomyelitis. No abnormal intraosseous enhancement. X-ray right hand No maria m evidence of osteomyelitis. Plain film radiographs can be insensitive to osteomyelitis during the initial 15 days of the disease process. If there is clinical concern for osteomyelitis, then three-phase nuclear medicine bone scan or MRI should be considered for further evaluation. Labs 01/30/24 05:52 01/30/24 05:52 Labs: Laboratory Results - last 24 hr 01/31/24 06:00 Vancomycin Trough 10.0 PFSH Social History household members: none Tobacco & Substance Use Smoking Status: Current some day smoker Assessment & Plan Assessment & Plan narrative: Right index finger infection, no indication for incision drainage at this point. Per Dr. Rosario -Continue antibiotics. -Hibiclens soaks for 5 minutes twice daily -ortho to continue to follow for worsening Time-Based Coding :: [TOTAL MINUTES] spent with patient and on the chart (including review of chart, obtaining history, exam, reviewing outside data, placing orders, documenting exam and treatment plan, and counseling patient) on [DATE].
--- NOTE | 2024-01-31 12:51 | PM.PN.1 ---
Subjective Subjective Interval history: Summary: The patient was a 49-year-old male who presented with a infected right 2nd hand digit. He has been on antibiotics overnight. MRI was negative for fluid collection. Subjective: He feels that the finger is a little bit better today but still significantly swollen and painful. Can flex at the DIP and PIP and still has dorsal hand tenderness. No fevers. Exam Vital Signs (past 8 hours): Oxygen Delivery Method Room Air Oxygen Flow Rate 0 Narrative Exam Narrative: NAD, alert and oriented. Fluent speech. Lungs are clear, normal rate and effort. Heart is regular, no murmur gallop or rub. Abdomen is soft, non distended. Extremities are free of edema. Right hand 2nd digit is red and swollen. There is no tenderness of the D IP when squeezed from lateral and medially. There is no tenderness of the PIP when compressed. The MTP is also relatively nontender. The dorsal aspect of the in his still swollen. The proximal segment of the phalanges she was tender to palpation. Objective Labs 01/30/24 05:52 01/30/24 05:52 Labs: Laboratory Results - last 24 hr 01/31/24 06:00 Vancomycin Trough 10.0 PFSH Social History household members: none Smoking Status: Current some day smoker Assessment & Plan Assessment & Plan narrative: 1. Right index finger bacterial tenosynovitis, present on admission and active. 2. Methamphetamine abuse, present on admission and active. Plan: -continue antibiotics with ceftriaxone and vancomycin per pharmacy -ortho consult -nares MRSA screen Observation status Full code SHEFALI is January 31. Likely we will discharge home on oral antibiotics if finger improves. Time-Based Coding :: 20 min spent with patient and on the chart (including review of chart, obtaining history, exam, reviewing outside data, placing orders, documenting exam and treatment plan, and counseling patient) on 01/30. Quality VTE Deep Vein Thrombosis/Pulmonary Embolism Present on Admission: No
--- NOTE | 2024-01-31 14:17 | CM.DANOTE ---
Initial DCP Assessment Note Pt is a 49 yo male, resident of [place], admitted for management of cellulitis in his finger, ortho consulted PCP: Unknown Payer: [employer] Reviewed chart, patient with hx of housing instability and had been living in his je in August 2023. Met w/patient, introduced self and role. Patient reports that he lives independently in his parent's home, he is unemployed and not on disability benefits. 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 Patient reports he has been using drugs since he was 19yo, denies that his drug use causes a problem in his life. Patient denies hx of treatment and counseling. Patient intends to discharge back home to his parents. No barriers identified at this time to patient's discharge home when medically stable. CM team will plan to follow clinical course closely in case any DC needs or concerns arise. FÉLIX Valentine Discharge Planning/Care Management CM Discharge Assessment Start: 01/31/24 14:14 Freq: Status: Active Protocol: Document 01/31/24 14:14 MARLYS (Rec: 01/31/24 14:17 MARLYS [id number]) Discharge Planning Assessment Assigned [employer] Driver FÉLIX Cooper DPOA/Assigned Designee Name Juan R Hall, father Contact Information [phone] Advance Directives? No Advance Directives on File No History Provided By Patient,Medical Record Prior Living Arrangements House Household Members family Type of transporation used prior to Drives own vehicle admit Independent with ADL's Yes Is patient alert and oriented? Yes Barriers to Discharge No Comment Patient denies needs at this time and plans to return to his parent's home Discharge Plan Home Transportation Arrangement Own vehicle vs parents Referrals Initiated None needed
[2024-01-31] MEDS: VANCOMYCIN 1,500 MG/300 ML PIGGYBACK 200 MG IV ×2 (14:30→22:24)
--- NOTE | 2024-01-31 15:07 | PM.CN ---
History of Present Illness Consult details Date Patient Seen: 01/31/24 Time Patient Seen: 15:07 Chief complaint: bite by something on rt finger now infected Requesting provider: Margarito Slater Narrative: Mr. Hernández is a 49 yo M with 4-5 day history of increased swelling to his left index finger. He says it is possibly bitten by a spider by he has not seen any. He presented to ED and was admitted to medicine service for IV antibiotics. Patient reports improved pain and swelling since he was admitted. Meds Home Medications and Allergies Home Medications Medication Instructions Recorded Confirmed Type No Known Home Medications 01/30/24 01/30/24 History Allergies Allergy/AdvReac Type Severity Reaction Status Date / Time No Known Drug Allergies Allergy Verified 01/30/24 05:47 Exam Vital Signs (past 8 hours): - 01/31/24 09:00 Pulse Oximetry 95 Oxygen Delivery Method Room Air Oxygen Flow Rate 0 Extrem Other: right index finger with generalized swelling. Erythema on the dorsum of index finger with small thin blisters on the dorsum. Decreased ROM secondary to swelling. Patient has no tenderness to flexor sheath to the index finger, no palm tenderness, no tenderness with passive extension of his index finger. He has tenderness to palpation over his index finger on the dorsum surface. He does not have increased pain with active ROM or passive ROM of IP or MCP joints. Objective Imaging MRI left hand: My impression: index finger with generalized cellulitis. No fluid collection is soft tissue or tendon sheath. No visible abscess in the hand. No fluid collection in joints of hand/fingers. Labs 01/30/24 05:52 01/30/24 05:52 Labs: Laboratory Results - last 24 hr 01/31/24 06:00 Vancomycin Trough 10.0 PFSH Social History household members: family Tobacco & Substance Use Smoking Status: Current some day smoker Assessment & Plan Assessment & Plan narrative: 49 yo M with 4-5 days history of increased swelling to his left index finger. Patient reports possible spider bite but has not seen any insects causing his finger injury. He has cellulitis to the dorsum of his index finger with increased swelling. He has negative signs of flexor tenosynovitis on examination. MRI does not show fluid collection in the soft tissue or tendon sheath, no abscess. There is no surgical indication at this time. I discussed my findings with patient. I gave order for nurse to start warm soaks to his left hand to improve circulation and swelling. Will continue to observe his progress on IV antibiotics since patient reports improved pain and swelling since admission. Time-Based Coding :: [TOTAL MINUTES] spent with patient and on the chart (including review of chart, obtaining history, exam, reviewing outside data, placing orders, documenting exam and treatment plan, and counseling patient) on [DATE].
[2024-01-31 18:11] VITALS: BP 135/85; PULSE 93; RESP 16; TEMP 36.9; O2SAT 98
[2024-01-31 19:00] VITALS: BP 129/77; PULSE 73; RESP 16; TEMP 37.3; O2SAT 97
[2024-02-01] MEDS: cefTRIAXone 2,000 MG in SODIUM CHLORIDE 0.9% 100 ML 200 MG IV (05:07)
[2024-02-01] MEDS: VANCOMYCIN 1,500 MG/300 ML PIGGYBACK 200 MG IV ×2 (05:55→14:40)
[2024-02-01] MEDS: OXYCODONE IR 10 MG TABLET PO ×2 (05:56→11:25)
[2024-02-01 06:33] LABS: Hematocrit 37.3 % (41-53); Hemoglobin 12.3 g/dL (13.5-17.5); Mean Corpuscular HGB Conc 33.1 % (30-36); Mean Corpuscular Hemoglobin 26.9 PG (26-34); Mean Corpuscular Volume 81.2 fL (80-100); Platelet Count 264 X10^3/uL (150-400); Red Blood Cell Count 4.59 X10^6/uL (4.5-5.9); Red Cell Distribution Width 16.4 % (11.6-14.8)
[2024-02-01 06:46] LABS: BUN Creatinine Ratio 8.6 (6-22); Blood Urea Nitrogen 5 mg/dL (9-20); Calcium 8.5 mg/dL (8.4-10.2); Carbon Dioxide 24 mmol/L (22-32); Chloride 108 mmol/L (98-107); Estimated Glomerular Filt Rate > 60 mL/min (>60); Glucose 145 mg/dL (70-100); HEMOLYSIS < 15 (0-50); Potassium 3.8 mmol/L (3.4-5.1); Sodium 137 mmol/L (137-145)
--- NOTE | 2024-02-01 08:07 | PM.PN.1 ---
Subjective Subjective Interval history: Summary: The patient was a 49-year-old male who presented with a infected right 2nd hand digit. He has been on antibiotics overnight. MRI was negative for fluid collection. Subjective: Less pain today, still quite swollen. Less dorsal hand pain. Ortho recommended soaks. Exam Vital Signs (past 8 hours): Oxygen Delivery Method Room Air Oxygen Flow Rate 0 Narrative Exam Narrative: NAD, alert and oriented. Fluent speech. Lungs are clear, normal rate and effort. Heart is regular, no murmur gallop or rub. Abdomen is soft, non distended. Extremities are free of edema. Finger/Hand: Still swollen and red. The entire top appears to be blistering. There is no spontaneous drainage. There is no tenderness of the PIP or D IP. In CP is also unremarkable. Dorsal hand is less swollen and not tender. Objective Labs 02/01/24 06:00 02/01/24 06:00 Labs: Laboratory Results - last 24 hr 02/01/24 06:00 WBC 10.0 RBC 4.59 Hgb 12.3 L Hct 37.3 L MCV 81.2 MCH 26.9 MCHC 33.1 RDW 16.4 H Plt Count 264 Sodium 137 Potassium 3.8 Chloride 108 H Carbon Dioxide 24 BUN 5 L Creatinine 0.58 L Estimated GFR > 60 BUN/Creatinine Ratio 8.6 Glucose 145 H Calcium 8.5 PFSH Social History household members: family Smoking Status: Current some day smoker Assessment & Plan Assessment & Plan narrative: 1. Right index finger bacterial tenosynovitis, present on admission and active. 2. Methamphetamine abuse, present on admission and active. Plan: -continue antibiotics with ceftriaxone and vancomycin per pharmacy -ortho consult -nichelle MRSA screen Observation status SHEFALI is February 01. Oral antibiotics will depend on clinical progress and MRSA screen. Orthopedics is involved and has recommended no incision and drainage. Time-Based Coding :: 20 min spent with patient and on the chart (including review of chart, obtaining history, exam, reviewing outside data, placing orders, documenting exam and treatment plan, and counseling patient) on 01/31. Quality VTE Deep Vein Thrombosis/Pulmonary Embolism Present on Admission: No
[2024-02-01] MEDS: NICOTINE 14 PATCH 14 MG TOP (08:31)
[2024-02-01 09:44] VITALS: BP 152/99; PULSE 72; RESP 16; TEMP 36.8; O2SAT 98
--- NOTE | 2024-02-01 11:00 | CM.DPNOTE ---
ASHLEY Cont Reviewed chart. Patient discussed in multidisciplinary rounds. Dr Slater anticipates an additional day of abx then likely home tomorrow. Plan remains discharge home w/family w/close outpatient follow up. CM team following clinical course closely in case any discharge needs or concerns arise. MARLYS
--- NOTE | 2024-02-01 11:57 | PM.PN.1 ---
Subjective Subjective Interval history: Arnoldo is a 49 year old male who presented to ED w/ complaints of right 2nd finger pain and swelling. He thinks he might have been bitten by a spider or stung by a bee. He reports he woke up with the swelling, sudden onset. He was admitted to the hospital for cellulitis and being given IV abx. Ortho was consulted, MRI on 01/29 was negative for any drainable fluid collection. Today he reports his finger feels slightly better but is still very painful and feels extremely stiff. Denies fever, nausea, chest pain, SOB. Admits to some chills. Exam Vital Signs (past 8 hours): - 02/01/24 09:44 Temperature 98.3 F Pulse Rate 72 Respiratory Rate 16 Blood Pressure 152/99 H Pulse Oximetry 98 Oxygen Delivery Method Room Air Oxygen Flow Rate 0 Narrative Exam Narrative: Right hand entire 2nd finger is very swollen and red. There is an area of dried blood surrounding a puncture wound just above the PIP joint, some fluctuance around this area. No other areas of notable fluctuance. Very tender to the 2nd MCP joint. Flexion and Extension very limited but appear to be intact, suspect limited ROM d/t sig swelling and pain. Pain worse w/ extension of the finger. Objective Labs 02/01/24 06:00 02/01/24 06:00 Labs: Laboratory Results - last 24 hr 02/01/24 06:00 WBC 10.0 RBC 4.59 Hgb 12.3 L Hct 37.3 L MCV 81.2 MCH 26.9 MCHC 33.1 RDW 16.4 H Plt Count 264 Sodium 137 Potassium 3.8 Chloride 108 H Carbon Dioxide 24 BUN 5 L Creatinine 0.58 L Estimated GFR > 60 BUN/Creatinine Ratio 8.6 Glucose 145 H Calcium 8.5 PFSH Social History household members: family Smoking Status: Current some day smoker Assessment & Plan Assessment & Plan narrative: We will continue to monitor patients wound and assess whether the area of fluctuance increases or not. Continue IV abx per medicine. May continue warm soapy soaks BID. Continue multimodal pain management. All of the patients questions were answered and he is in agreement w/ the treatment plan. Call our office if any questions or concerns arise. Time-Based Coding :: [TOTAL MINUTES] spent with patient and on the chart (including review of chart, obtaining history, exam, reviewing outside data, placing orders, documenting exam and treatment plan, and counseling patient) on [DATE]. Quality VTE Deep Vein Thrombosis/Pulmonary Embolism Present on Admission: No
[2024-02-01 13:59] LABS: Vancomycin Trough 12.3 ug/mL (10-20)
[2024-02-01] MEDS: VANCOMYCIN TROUGH 1 REQUEST MISC (14:40)
[2024-02-01 19:00] VITALS: BP 148/90; PULSE 67; RESP 17; TEMP 37.1; O2SAT 96
[2024-02-02] MEDS: OXYCODONE IR 5 MG TABLET PO (02:35)
[2024-02-02] MEDS: VANCOMYCIN 1,500 MG/300 ML PIGGYBACK 200 MG IV (02:37)
[2024-02-02] MEDS: ONDANSETRON 4 MG/2 ML INJ IV (03:42)
[2024-02-02 04:27] LABS: MRSA (Nasal) PCR NOT DETECTED (Not Detect)
[2024-02-02 05:23] LABS: Hematocrit 40.6 % (41-53); Hemoglobin 13.4 g/dL (13.5-17.5); Mean Corpuscular HGB Conc 33.1 % (30-36); Mean Corpuscular Hemoglobin 26.9 PG (26-34); Mean Corpuscular Volume 81.2 fL (80-100); Platelet Count 320 X10^3/uL (150-400); Red Cell Distribution Width 16.7 % (11.6-14.8)
[2024-02-02] MEDS: METOCLOPRAMIDE 10 MG/2 ML INJ 5 MG IV (05:48)
[2024-02-02] MEDS: cefTRIAXone 2,000 MG in SODIUM CHLORIDE 0.9% 100 ML 200 MG IV (05:48)
[2024-02-02 05:59] LABS: BUN Creatinine Ratio 14.1 (6-22); Blood Urea Nitrogen 9 mg/dL (9-20); Calcium 9.1 mg/dL (8.4-10.2); Carbon Dioxide 22 mmol/L (22-32); Chloride 106 mmol/L (98-107); Estimated Glomerular Filt Rate > 60 mL/min (>60); Glucose 133 mg/dL (70-100); HEMOLYSIS < 15 (0-50); Potassium 3.8 mmol/L (3.4-5.1); Sodium 137 mmol/L (137-145)
[2024-02-02 07:00] VITALS: BP 128/84; PULSE 72; RESP 16; TEMP 36.2; O2SAT 99
[2024-02-02] MEDS: NICOTINE 14 PATCH 14 MG TOP (08:57)
--- NOTE | 2024-02-02 09:17 | PC.NURSE ---
Patients finger with some open area's and pus present on abcess. He states that he has a spider bite. Patient also states that he has an abcess to his r.hip that is deeper within skin, is aware of this. Patient offered pain medication but refused and he also denies nausea. S.O. is in room visiting. New nicotine patch placed on patients l.upper back.
--- NOTE | 2024-02-02 10:23 | PC.NURSE ---
Pt is dressed and ready for discharge home with S.O. IV has been removed. Belongings returned from safe. Went over d/c instructions with Pt-discussed d/c meds, time of last dose, reviewed stroke education, patient portal, s/s of infection and reminded Pt to come back in if infection does not improve, reminded Pt to take his full dose of abx as ordered and to drink plenty of fluids to prevent constipation or dehydration. Pt denied further questions and will be taken out via w/c by RN to POV with S.O. and all belongings.
--- NOTE | 2024-02-02 11:38 | PM.DS.1 ---
History of Present Illness History of Present Illness Date Patient Seen: 02/02/24 Time Patient Seen: 09:20 Date of Onset of Symptoms: 01/30/24 Chief complaint: bite by something on rt finger now infected Narrative: 49yoM right hand dominant with PMH amphetamine abuse presents for 2 days of R index finger pain and swelling. Patient states that he thinks he may have been bitten by something. Over the last 2 days his finger has become progressively more swollen and painful. Denies fevers or chills. States that he was able to express a small amount of pus from a scab on his finger yesterday. Started on IV antibiotics ceftriaxone, and vancomycin at 5:00 a.m.. Orthopedics consulted. The patient can not really quantify how many days his finger has been swollen and red. There is some discharge over the D IP. He notes increased pain with trying to flex or extend the hand as well as dorsal pain over the body of the hand. No fevers, or chills. Imaging in the emergency department confined to an x-ray. Orthopedics was consulted. He denies any trauma that he remembers that may have caused this. He does have multiple excoriations over the dorsal aspect of his fingers and hand. Discharge Providers Provider Date of admission: 01/30/24 07:30 Discharge Date: 02/02/24 Primary care physician: Doctor Herman MD Consults: 01/30/24 07:30 Consult to Orthopedic Surgery Stat Comment: Consulting Provider: José Miguel Rosario Reason for consultation: finger infection, 2nd digit right hand Has provider been notified: Yes Discharge provider: Luisito Nevarez MD Summary Hospital Course Discharge Diagnosis: 1. Right index finger bacterial tenosynovitis, present on admission and active. 2. Methamphetamine abuse, present on admission and active. Hospital Course: The patient was admitted and placed on IV antibiotics. Imaging study showed no evidence of osteomyelitis. Orthopedic consultation did not feel that incision and drainage was indicated. The patient was stable during the admission and improved clinically and transition to oral antibiotics at discharge with close outpatient follow-up advised. The patient acknowledged understanding, agreement and appreciation of this plan of care, and agreed to call back with any questions or concerns. Finger xray: No maria m evidence of osteomyelitis. Plain film radiographs can be insensitive to osteomyelitis during the initial 15 days of the disease process. If there is clinical concern for osteomyelitis, then three-phase nuclear medicine bone scan or MRI should be considered for further evaluation. MRI hand: 1. Significant cellulitis over dorsal aspect of right hand and wrist extending to surround 2nd finger without discrete drainable abscess collection. No enhancing soft tissue mass. No abnormal muscle signal. 2. 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 No fracture or dislocation. No MR evidence of osteomyelitis. No abnormal intraosseous enhancement. Status at Discharge Cognitive/behavioral status at discharge: oriented Functional status at discharge: independent ambulation Overall status at discharge: patient is not back to baseline Time Spent with Patient Time spent: Less than 30 minutes Exam Vital Signs (past 8 hours): - 02/02/24 07:00 Temperature 97.2 F L Pulse Rate 72 Respiratory Rate 16 Blood Pressure 128/84 Pulse Oximetry 99 Oxygen Flow Rate 0 Oxygen Delivery Method Room Air Oxygen Flow Rate 0 Narrative Exam Narrative: NAD, alert and oriented. Fluent speech. Lungs are clear, normal rate and effort. Heart is regular, no murmur gallop or rub. Abdomen is soft, non distended. Extremities are free of edema. Right hand with mild erythema and tenderness, receded from prior day. There is no spontaneous drainage. There is no tenderness of the PIP or D IP, MCP is also unremarkable. Dorsal hand is less swollen and not tender. Objective Labs 02/02/24 05:02 02/02/24 05:02 Labs: Laboratory Results - last 24 hr 02/01/24 02/02/24 02/02/24 13:29 02:08 05:02 WBC 10.0 RBC 5.00 Hgb 13.4 L Hct 40.6 L MCV 81.2 MCH 26.9 MCHC 33.1 RDW 16.7 H Plt Count 320 Sodium 137 Potassium 3.8 Chloride 106 Carbon Dioxide 22 BUN 9 Creatinine 0.64 L Estimated GFR > 60 BUN/Creatinine Ratio 14.1 Glucose 133 H Calcium 9.1 Nasal Screen MRSA (PCR) Not detected Vancomycin Trough 12.3 PFSH Social History household members: family Smoking Status: Current some day smoker Discharge Plan Discharge Plan Patient Disposition: Home Discharge orders & Medications Prescriptions: New acetaminophen 325 mg Tablet 650 mg PO Q6H PRN (Reason: Fever/Mild Pain (1-3)) Qty: 30 0RF cephalexin 500 mg capsule 500 mg PO TID Qty: 21 0RF Follow up/Referrals: Doctor Sutton MD [Primary Care Provider] - Visit Report/Discharge Packet Instructions: DI for Cellulitis -- Adult, Cephalexin Stand Alone Forms: Patient Portal/API, Stroke Signs & Symptoms Discharge Data Primary Care Provider: Doctor Herman Attending Provider: Margarito Slater Admit Date/Time: 01/30/24 07:30 Quality VTE Deep Vein Thrombosis/Pulmonary Embolism Present on Admission: No MIPS - Admit I confirm the patient?s Advance Care Plan is present, Code status is documented, Surrogate decision maker is in patient?s record [If Yes, STOP here]: Yes MIPS - Meds 'Current medications' to include all prescriptions, nidj-ics-nivgnma products, herbals, cannabis/cannabidiol products, and vitamin/mineral/dietary (nutritional) supplements. I have utilized all available resources to obtain, update, or review the patient?s current medications. [If Yes, STOP here]: Yes MIPS - DC The patient has a history of heart transplant or Left Ventricular Assist Device (LVAD). If yes, STOP here.: No The patient has current or prior documentation of left ventricular ejection fraction (LVEF) less than or equal to 40%, or moderate or severely depressed left ventricular systolic function.: No A. The patient was prescribed or already taking an Angiotensin-Converting Enzyme (MERLIN) Inhibitor, or Angiotensin Receptor Doug (ARB).: No B. The patient was prescribed or already taking a beta-doug. [If Yes to Both A & B, STOP here]: No Patient not prescribed/taking MERLIN or ARB, no reason given.: No Patient not prescribed/taking beta-doug, no reason given.: No [facility] PROFEE Charge Codes Discharge inpatient/observation: [id number]
== END 2024-02-02 10:20 | disposition home or self-care (01) ==
LOC: ED 07:31 → AC 07:31
PROVIDERS: Emergency Medicine; Admitting Provider Hospitalist; Emergency Provider Emergency Medicine; Visit Provider Hospitalist
DX: M65.9 Synovitis and tenosynovitis, unspecified (principal); F17.210 Nicotine dependence, cigarettes, uncomplicated
CPT/HCPCS: 36415; 73140; 73220; 80048; 80053; 80202; 85025; 85027; 87797; 96365; 96366; 96367; 96375; 96376; 99284; G0378; J0696; J1170; J2405; J2765

== ENCOUNTER 2024-08-20 21:30 | Emergency (ER) | payer OTHER, SELFPAY ==
[2024-01-30 08:13] VITALS: BMI 26.9
[2024-08-20] VITALS (11 sets, daily range): BP systolic 95–137; BP diastolic 56–94; PULSE 93–117; RESP 7–17; TEMP 37.1; O2SAT 86–98; BMI 28.3
--- NOTE | 2024-08-20 21:46 | ED.OVERDOSE ---
HPI - Overdose General Chief Complaint: Toxicology Problem Stated Complaint: Fent OD Time Seen by Provider: 08/20/24 21:45 History of Present Illness HPI Narrative: 49-year-old male past medical history polysubstance abuse brought in by medics for possible overdose. Patient was found unconscious not breathing patient was given Narcan 2 mg intranasal awoke normal vitals. At time of evaluation here patient is still nodding off, patient was placed on capnography, additional Narcan was given, patient does admit to smoking ?a variety of drugs earlier today. He denies any other symptoms at this time. Related Data Previous Rx's Medication Instructions Recorded acetaminophen 325 mg tablet 650 mg (2 x 325 mg) PO Q6H PRN 02/02/24 Fever/Mild Pain (1-3) #30 tabs cephalexin 500 mg capsule 500 mg PO TID #21 caps 02/02/24 Allergies Allergy/AdvReac Type Severity Reaction Status Date / Time No Known Drug Allergies Allergy Verified 08/20/24 21:51 Review of Systems Review of Systems Narrative: General: Drug overdose, Denies fever, chills, weight loss HEENT: Denies headache, eye drainage, eye irritation, head trauma, sore throat, voice change Cardiovascular: Denies any chest pain, palpitations, shortness of breath, tachycardia Respiratory: Denies any shortness of breath, cough, wheeze, stridor GI/: Denies any abdominal pain, nausea, vomiting, diarrhea, bright red blood per rectum, melanotic stools, urinary frequency, urinary retention, dysuria, hematuria MSK: Denies any joint pain, muscle pains, swelling Skin: Denies any rashes, lesions, discoloration Neuro: Denies any headache, lightheadedness, dizziness, fainting, weakness Psych: Denies SI/HI Patient History Social History household members: family Smoking Status: Current some day smoker Smoking Status: Current some day smoker alcohol intake frequency: holidays/special occasions only Exam Narrative Exam Narrative: General: Disheveled, unkempt, nodding off on exam but arousable HEENT: Normocephalic, atraumatic, PERRLA, normal sclera, eyelids normal, Neck: Active full range of motion, atraumatic Chest: Normal to inspection, negative crepitus, no overlying erythema ecchymosis Respiratory: Patient slight bradypnea when falling asleep but is protecting his airway Cardiology: Regular rate rhythm negative gallop, murmur, rubs GI/: Normal to inspection, soft, nonrigid, no tenderness to palpation, exam deferred MSK: Full range of active range of motion of all 4 extremities, atraumatic Skin: No rashes lesions noted Neuro: NIH of 0 no focal deficits Alert awake oriented x3, moves all 4 extremities spontaneously, cranial nerves intact, able to answer all questions appropriately follows commands appropriately Psych: Cooperative, negative suicidal or homicidal ideations Initial Vital Signs Initial Vital Signs: Vital Signs Temperature 98.7 F 08/20/24 21:30 Pulse Rate 93 H 08/20/24 21:30 Respiratory Rate 14 08/20/24 21:30 Blood Pressure 135/94 H 08/20/24 21:30 Pulse Oximetry 97 08/20/24 21:30 Oxygen Delivery Method Room Air 08/20/24 21:30 Course Orders Ordered: ED Orders 08/20/24 21:20 BMP [Basic Metabolic Panel] Stat CBC Auto Diff [Complete Blood Count AUTO DIFF] Stat Discontinued Medications Sodium Chloride (Normal Saline 0.9%) 1,000 mls @ 1,000 mls/hr IV BOLUS ONE Stop: 08/20/24 22:46 Last Infusion: 08/20/24 22:52 Dose: Infused Documented By: Admin: 08/20/24 21:52 Dose: 1,000 mls/hr Documented By: PASTORA Naloxone HCl (Naloxone 0.4 Mg/Ml Vial) 0.4 mg IV PRN PRN PRN Reason: Opiate Reversal Last Admin: 08/20/24 21:52 Dose: 0.4 mg Documented By: PASTORA Naloxone HCl (Naloxone 4 Mg Nasal [place]) 4 mg MISC DIRECTED ONE Stop: 08/21/24 00:08 Last Admin: 08/21/24 00:14 Dose: 4 mg Documented By: PASTORA Ondansetron HCl (Ondansetron 4 Mg/2 Ml Inj) 4 mg IV NOW ONE Stop: 08/20/24 21:48 Last Admin: 08/20/24 21:52 Dose: 4 mg Documented By: PASTORA Vital Signs Vital signs: Vital Signs - 8 hr 08/20/24 21:30 08/20/24 21:46 08/20/24 21:52 Temperature 98.7 F Pulse Rate 93 H 96 H Respiratory Rate 14 11 L 7 L Blood Pressure 135/94 H Pulse Oximetry 97 91 86 L Oxygen Delivery Method Room Air Room Air Room Air Oxygen Flow Rate 08/20/24 21:54 08/20/24 21:55 08/20/24 22:00 Temperature Pulse Rate 117 H Respiratory Rate 12 17 14 Blood Pressure Pulse Oximetry 94 94 98 Oxygen Delivery Method Nasal Cannula Nasal Cannula Nasal Cannula Oxygen Flow Rate 3 3 3 08/20/24 22:06 08/20/24 22:06 08/20/24 22:30 Temperature Pulse Rate 110 H 100 H Respiratory Rate 15 13 Blood Pressure 137/74 Pulse Oximetry 93 95 Oxygen Delivery Method Nasal Cannula Nasal Cannula Oxygen Flow Rate 3 3 08/20/24 22:31 08/20/24 22:31 08/20/24 23:00 Temperature Pulse Rate 103 H Respiratory Rate 14 Blood Pressure 95/56 L 135/72 Pulse Oximetry 95 Oxygen Delivery Method Nasal Cannula Oxygen Flow Rate 3 08/20/24 23:00 08/20/24 23:30 08/20/24 23:30 Temperature Pulse Rate 93 H 95 H Respiratory Rate 12 17 Blood Pressure 126/76 Pulse Oximetry 93 Oxygen Delivery Method Room Air Oxygen Flow Rate 08/21/24 00:00 08/21/24 00:00 Temperature Pulse Rate 98 H Respiratory Rate 17 Blood Pressure 121/70 Pulse Oximetry 94 Oxygen Delivery Method Room Air Oxygen Flow Rate MDM - Overdose Differential Diagnosis Differential diagnosis: Likely drug overdose and other (Electrolyte abnormality) Lab Data 08/20/24 21:20 08/20/24 21:20 Labs: Lab Results 08/20/24 Range/Units 21:20 WBC 9.5 (4.5-11.0) X10^3/uL RBC 4.14 L (4.5-5.9) X10^6/uL Hgb 11.5 L (13.5-17.5) g/dL Hct 35.6 L (41-53) % MCV 86.1 (80-100) fL MCH 27.8 (26-34) PG MCHC 32.3 (30-36) % RDW 16.3 H (11.6-14.8) % Plt Count 305 (150-400) X10^3/uL Neut % (Auto) 72.5 (50-75) % Lymph % (Auto) 18.6 L (25-40) % [place] % (Auto) 6.8 (3-14) % Eos % (Auto) 1.6 L (2-4) % Baso % (Auto) 0.5 (0-2) % Neut # (Auto) 6900 (1200-5287) /uL Lymph # (Auto) 1800 (6747-8365) /uL [place] # (Auto) 700 (0-900) /uL Eos # (Auto) 200 (0-450) /uL Baso # (Auto) 0 (0-100) /uL Sodium 140 (137-145) mmol/L Potassium 3.5 (3.4-5.1) mmol/L Chloride 103 (98-107) mmol/L Carbon Dioxide 28 (22-32) mmol/L BUN 17 (9-20) mg/dL Creatinine 0.82 (0.66-1.25) mg/dL Estimated GFR > 60 (>60) mL/min BUN/Creatinine Ratio 20.7 (6-22) Glucose 231 H (70-100) mg/dL Calcium 8.5 (8.4-10.2) mg/dL MDM Narrative Medical decision making narrative: 49-year-old male with a history of polysubstance abuse brought in by medics for drug overdose. Patient was found unconscious not breathing was given 2 intranasal Narcan with return to baseline. Upon arrival here patient is still nodding off additional IV Narcan given with improvement of his mentation. Patient was given 1 L normal saline, Zofran with improved mentation. Lab work unremarkable. Patient was monitored here on capnography he maintained his airway after additional Narcan, did not require any supplemental oxygen. At re-evaluation patient awake alert states that he wants to go home denies any other symptoms he was given strict return precautions verbalized understanding of this and agrees to being discharged home with outpatient follow up Naloxone at Discharge Meets criteria for naloxone at discharge?: Yes Discharge Plan Departure Patient Disposition: Home Clinical Impression: Overdose Instructions: DI for Substance Use Disorder Activity Restrictions/Additional Instructions: Please follow up with primary care Please read the discharge instructions sheet carefully and bring all papers to all doctor follow-up visits, as it may contain information that your doctor may want to see. Disease processes change and evolve, if your symptoms worsen or if you develop any new symptoms that are concerning to you please return for evaluation. Your evaluation today does not show any evidence of any life-threatening/serious illnesses requiring admission to the hospital or surgery. Please follow-up with your doctor for re-evaluation in approximately 1 day. Seek immediate medical attention for any worrisome symptoms. *If you do not have a primary care provider please contact the [facility] Resource line at [phone]. They will ask some questions about your medical history and help get you set up with a doctor in the community. Prescriptions: No Action acetaminophen 325 mg Tablet 650 mg PO Q6H PRN (Reason: Fever/Mild Pain (1-3)) Qty: 30 0RF cephalexin 500 mg capsule 500 mg PO TID Qty: 21 0RF Referrals: Miscellaneous,Doctor, MD [Primary Care Provider] - Stand Alone Forms: Patient Portal/API/Survey
[2024-08-20] MEDS: ONDANSETRON 4 MG/2 ML INJ IV (21:52)
[2024-08-20] MEDS: NALOXONE 0.4 MG/ML VIAL IV (21:52)
[2024-08-20] MEDS: SODIUM CHLORIDE 0.9% 1,000 ML 1000 ML IV (21:52)
--- NOTE | 2024-08-20 21:52 | PC.NURSE ---
Patient is breathing shallow breaths 7bpm., oxygen sats 86% on room air. RT at bedside, pt placed on oxygen 3L NC. Pt placed on capnography. Dr. Sandoval at bedside. Medications given- see AUG. Oxygen improved with narcan and oxygen- breathing 12bpm and o2 sats 94% on 3L NC. pt GCS 15.
--- NOTE | 2024-08-20 21:54 | PC.NURSE ---
Patient states he uses a variety of different drugs, prefers to ingest or smoke over inject. States he has taken or takes DMT, ketamine, mushrooms, speed/cocaine, MDMA, Opioids. States overdose but not required a ventilater. Tonight patient states was smoking foil, unsure exactly what but believes it was an opioid.
[2024-08-20 22:00] LABS: Add Manual Diff / Slide Review NO; Basophils Absolute Auto 0 /uL (0-100); Basophils Percent Auto 0.5 % (0-2); Eosinophils Absolute Auto 200 /uL (0-450); Eosinophils Percent Auto 1.6 % (2-4); Hematocrit 35.6 % (41-53); Hemoglobin 11.5 g/dL (13.5-17.5); Lymphocytes Absolute Auto 1800 /uL (1100-4500); Lymphocytes Percent Auto 18.6 % (25-40); Mean Corpuscular HGB Conc 32.3 % (30-36); Mean Corpuscular Hemoglobin 27.8 PG (26-34); Mean Corpuscular Volume 86.1 fL (80-100); Monocytes Absolute Auto 700 /uL (0-900); Monocytes Percent Auto 6.8 % (3-14); Neutrophils Absolute Auto 6900 /uL (1500-7000); Neutrophils Percent Auto 72.5 % (50-75); Platelet Count 305 X10^3/uL (150-400); Red Blood Cell Count 4.14 X10^6/uL (4.5-5.9); Red Cell Distribution Width 16.3 % (11.6-14.8); White Blood Cell Count 9.5 X10^3/uL (4.5-11.0)
[2024-08-20 22:05] LABS: BUN Creatinine Ratio 20.7 (6-22); Blood Urea Nitrogen 17 mg/dL (9-20); Calcium 8.5 mg/dL (8.4-10.2); Carbon Dioxide 28 mmol/L (22-32); Chloride 103 mmol/L (98-107); Estimated Glomerular Filt Rate > 60 mL/min (>60); Glucose 231 mg/dL (70-100); HEMOLYSIS < 15 (0-50); Potassium 3.5 mmol/L (3.4-5.1); Sodium 140 mmol/L (137-145)
--- NOTE | 2024-08-20 23:19 | PC.NURSE ---
Pts mother (GABO) calls ED to check on Pt. Pt ok'd RN providing update
[2024-08-21] VITALS: BP 121/70; PULSE 98; RESP 17; O2SAT 94
[2024-08-21] MEDS: NALOXONE 4 MG NASAL SPRAY MISC (00:14)
== END 2024-08-21 00:23 | disposition home or self-care (01) ==
PROVIDERS: Emergency Provider Student in an Organized Health Care Education/Training Program
DX: T65.91XA Toxic effect of unspecified substance, accidental (unintentional), initial encounter (principal); R06.89 Other abnormalities of breathing
CPT/HCPCS: 80048; 85025; 96361; 96374; 96375; 99284; A9270; J2310; J2405